=== PATIENT | female | born 1950 | race Caucasian/White ===

== ENCOUNTER 2023-04-17 12:11 | Inpatient (IN) | payer BC, OTHER ==
[2023-04-17 14:39] LABS: BASO % 0.7 % (0-2.0); EOS % 2.3 % (0-4.5); HEMATOCRIT 33.9 % (32.4-45.2); HEMOGLOBIN 11.1 GM/dL (10.7-15.3); LYMPH % 12.5 % (8-40); MCH 24.8 pg (25.7-33.7); MCHC 32.9 g/dl (32.0-36.0); MEAN CELL VOLUME 75.6 fl (80-96); MEAN PLT VOLUME 7.9 fl (7.5-11.1); MONO % 7.9 % (3.8-10.2); NEUT % 76.6 % (42.8-82.8); PLATELET COUNT 303 10^3/uL (134-434); RBC 4.48 M/mm3 (3.60-5.2); RDW 14.8 % (11.6-15.6); WHITE BLOOD COUNT 5.4 K/mm3 (4.0-10.0)
[2023-04-17 15:06] LABS: ALBUMIN 2.8 g/dl (3.4-5.0); BLOOD UREA NITROGEN 21.9 mg/dL (7-18); CALCIUM 9.6 mg/dL (8.5-10.1)
[2023-04-17 15:10] LABS: BILIRUBIN,TOTAL 0.6 mg/dL (0.2-1); TOT PROT 7.2 g/dl (6.4-8.2)
[2023-04-17 15:11] LABS: CREATININE 0.9 mg/dL (0.55-1.3)
[2023-04-17] MEDS ORDERED: SODIUM CHLORIDE 500 ML IV STA (16:03)
[2023-04-17] MEDS ORDERED: BISACODYL 5 MG TABLET.DR (FP) PO ONE (19:26)
[2023-04-17] MEDS ORDERED: POLYETHYLENE GLYCOL (HEALTHYLAX) 3350 17 GM PACKET ONE (19:58)
[2023-04-17] MEDS: POLYETHYLENE GLYCOL (HEALTHYLAX) 3350 17 GM PACKET PO SCH (20:02)
[2023-04-17 21:09] LABS: EPI CELLS 11 /uL (0-25.1); HYALINE CASTS 0 /uL (0-3.1); PH,URINE 5.5 (5.0-8.0); URINE APPEARANCE CLOUDY; URINE BACTERIA 8251 /uL (0-1359); URINE BILIRUBIN NEGATIVE (NEGATIVE); URINE COLOR YELLOW; URINE GLUCOSE (UA) NEGATIVE (NEGATIVE); URINE KETONE 1+ (NEGATIVE); URINE LEUK ESTERASE 2+ (NEGATIVE); URINE NITRITE POSITIVE (NEGATIVE); URINE PROTEIN NEGATIVE (NEGATIVE); URINE UROBILINOGEN 0.2 mg/dL (0.2-1.0); URINE WBC 995 /uL (0-25.8)
[2023-04-17] MEDS ORDERED: APIXABAN 5 MG TABLET ONE (21:32)
[2023-04-17] MEDS ORDERED: CARVEDILOL 6.25 MG TABLET (FP) ONE (21:32)
[2023-04-17 21:34] LABS: URINE RBC 44.8 /uL (0-23.9)
[2023-04-17] MEDS: APIXABAN 5 MG TABLET PO SCH (22:06)
[2023-04-17] MEDS: SACUBITRIL/VALSARTAN 97 MG-103 MG TABLET PO SCH (22:06)
[2023-04-17] MEDS: CARVEDILOL 6.25 MG TABLET (FP) PO SCH (22:06)
[2023-04-18 05:09] VITALS: BMI 22.4
[2023-04-18 08:13] LABS: HEMATOCRIT 31.7 % (32.4-45.2); HEMOGLOBIN 10.2 GM/dL (10.7-15.3); MCH 24.5 pg (25.7-33.7); MCHC 32.2 g/dl (32.0-36.0); PLATELET COUNT 286 10^3/uL (134-434); RBC 4.17 M/mm3 (3.60-5.2); RDW 14.4 % (11.6-15.6); WHITE BLOOD COUNT 4.3 K/mm3 (4.0-10.0)
[2023-04-18 08:26] LABS: BLOOD UREA NITROGEN 22.4 mg/dL (7-18); CALCIUM 8.9 mg/dL (8.5-10.1); MAGNESIUM 1.8 mg/dL (1.8-2.4)
[2023-04-18 08:30] LABS: CREATININE 0.8 mg/dL (0.55-1.3); PHOSPHOROUS 3.2 mg/dL (2.5-4.9)
[2023-04-18] MEDS: PANTOPRAZOLE 40 MG TABLET PO SCH (09:46)
[2023-04-18] MEDS: POLYETHYLENE GLYCOL (HEALTHYLAX) 3350 17 GM PACKET PO SCH (09:46)
[2023-04-18] MEDS: CARVEDILOL 6.25 MG TABLET (FP) PO SCH ×2 (09:46→23:00)
[2023-04-18] MEDS: FAMOTIDINE 20 MG TABLET PO SCH (09:46)
[2023-04-18] MEDS: SACUBITRIL/VALSARTAN 97 MG-103 MG TABLET PO SCH ×2 (09:46→23:27)
[2023-04-18] MEDS: APIXABAN 5 MG TABLET PO SCH ×2 (09:46→23:00)
[2023-04-18] MEDS: CEFTRIAXONE 1 GM in DEXTROSE 5%-WATER - 50 ML IVPB SCH (09:57)
[2023-04-18] MEDS: MAG HYDROX/AL HYDROX/SIMETH 30 ML UNIT-DOSE CUP PO SCH (17:42)
[2023-04-19] MEDS: MAG HYDROX/AL HYDROX/SIMETH 30 ML UNIT-DOSE CUP PO SCH ×4 (00:14→17:36)
[2023-04-19] MEDS: PANTOPRAZOLE 40 MG TABLET PO SCH (10:12)
[2023-04-19] MEDS: POLYETHYLENE GLYCOL (HEALTHYLAX) 3350 17 GM PACKET PO SCH (10:12)
[2023-04-19] MEDS: SACUBITRIL/VALSARTAN 97 MG-103 MG TABLET PO SCH ×2 (10:12→22:35)
[2023-04-19] MEDS: CEFTRIAXONE 1 GM in DEXTROSE 5%-WATER - 50 ML IVPB SCH (10:12)
[2023-04-19] MEDS: CARVEDILOL 6.25 MG TABLET (FP) PO SCH ×2 (10:12→22:36)
[2023-04-19] MEDS: FAMOTIDINE 20 MG TABLET PO SCH (10:12)
[2023-04-19] MEDS: APIXABAN 5 MG TABLET PO SCH ×2 (10:13→22:36)
[2023-04-19] MEDS: SODIUM CHLORIDE 1,000 ML IV SCH (15:00)
[2023-04-20] MEDS: MAG HYDROX/AL HYDROX/SIMETH 30 ML UNIT-DOSE CUP PO SCH ×4 (00:57→17:06)
[2023-04-20 09:04] LABS: BASO % 0.7 % (0-2.0); EOS % 5.5 % (0-4.5); HEMATOCRIT 31.1 % (32.4-45.2); LYMPH % 17.8 % (8-40); MCH 24.5 pg (25.7-33.7); MCHC 32.2 g/dl (32.0-36.0); MEAN CELL VOLUME 76.2 fl (80-96); MEAN PLT VOLUME 7.9 fl (7.5-11.1); PLATELET COUNT 277 10^3/uL (134-434); RBC 4.08 M/mm3 (3.60-5.2); RDW 14.2 % (11.6-15.6)
[2023-04-20 09:12] LABS: POTASSIUM 3.8 mmol/L (3.5-5.1)
[2023-04-20 09:14] LABS: CALCIUM 8.8 mg/dL (8.5-10.1)
[2023-04-20 09:15] LABS: ALBUMIN 2.3 g/dl (3.4-5.0); BLOOD UREA NITROGEN 17.6 mg/dL (7-18); MAGNESIUM 1.9 mg/dL (1.8-2.4)
[2023-04-20 09:18] LABS: CREATININE 0.8 mg/dL (0.55-1.3)
[2023-04-20 09:19] LABS: BILIRUBIN,TOTAL 0.3 mg/dL (0.2-1)
[2023-04-20] MEDS: CEFTRIAXONE 1 GM in DEXTROSE 5%-WATER - 50 ML IVPB SCH (10:27)
[2023-04-20] MEDS: POLYETHYLENE GLYCOL (HEALTHYLAX) 3350 17 GM PACKET PO SCH (10:28)
[2023-04-20] MEDS: FAMOTIDINE 20 MG TABLET PO SCH (10:28)
[2023-04-20] MEDS: APIXABAN 5 MG TABLET PO SCH ×2 (10:28→22:53)
[2023-04-20] MEDS: PANTOPRAZOLE 40 MG TABLET PO SCH (10:28)
[2023-04-20] MEDS: CARVEDILOL 6.25 MG TABLET (FP) PO SCH ×2 (10:28→22:53)
[2023-04-20] MEDS: SACUBITRIL/VALSARTAN 97 MG-103 MG TABLET PO SCH ×2 (10:28→22:53)
[2023-04-20] MEDS: SODIUM CHLORIDE 1,000 ML IV SCH ×2 (16:25→17:06)
[2023-04-20] MEDS: MEROPENEM 1 GM in DEXTROSE 5%-WATER 100 ML IVPB SCH (17:05)
[2023-04-21] MEDS: MAG HYDROX/AL HYDROX/SIMETH 30 ML UNIT-DOSE CUP PO SCH ×4 (00:58→17:30)
[2023-04-21] MEDS: MEROPENEM 1 GM in DEXTROSE 5%-WATER 100 ML IVPB SCH ×3 (03:20→17:28)
[2023-04-21 08:36] LABS: EOS % 4.4 % (0-4.5); HEMATOCRIT 31.5 % (32.4-45.2); LYMPH % 14.7 % (8-40); MCH 24.3 pg (25.7-33.7); MCHC 31.9 g/dl (32.0-36.0); MEAN CELL VOLUME 76.3 fl (80-96); MEAN PLT VOLUME 7.7 fl (7.5-11.1); MONO % 10.4 % (3.8-10.2); NEUT % 69.5 % (42.8-82.8); PLATELET COUNT 286 10^3/uL (134-434); RBC 4.13 M/mm3 (3.60-5.2); RDW 14.6 % (11.6-15.6); WHITE BLOOD COUNT 3.5 K/mm3 (4.0-10.0)
[2023-04-21 08:56] LABS: POTASSIUM 3.9 mmol/L (3.5-5.1)
[2023-04-21 08:58] LABS: ALBUMIN 2.3 g/dl (3.4-5.0); BLOOD UREA NITROGEN 15.9 mg/dL (7-18); CALCIUM 8.9 mg/dL (8.5-10.1)
[2023-04-21 08:59] LABS: MAGNESIUM 2.1 mg/dL (1.8-2.4)
[2023-04-21 09:02] LABS: CREATININE 0.8 mg/dL (0.55-1.3)
[2023-04-21 09:03] LABS: BILIRUBIN,TOTAL 0.2 mg/dL (0.2-1); TOT PROT 6.3 g/dl (6.4-8.2)
[2023-04-21] MEDS: CARVEDILOL 6.25 MG TABLET (FP) PO SCH ×2 (09:38→22:14)
[2023-04-21] MEDS: APIXABAN 5 MG TABLET PO SCH ×2 (09:38→22:14)
[2023-04-21] MEDS: FAMOTIDINE 20 MG TABLET PO SCH (09:39)
[2023-04-21] MEDS: PANTOPRAZOLE 40 MG TABLET PO SCH (09:39)
[2023-04-21] MEDS: POLYETHYLENE GLYCOL (HEALTHYLAX) 3350 17 GM PACKET PO SCH (09:39)
[2023-04-21] MEDS: SACUBITRIL/VALSARTAN 97 MG-103 MG TABLET PO SCH ×2 (09:39→22:14)
[2023-04-21] MEDS: SODIUM CHLORIDE 1,000 ML IV SCH ×2 (14:55→18:54)
[2023-04-22] MEDS: MAG HYDROX/AL HYDROX/SIMETH 30 ML UNIT-DOSE CUP PO SCH ×5 (01:14→23:46)
[2023-04-22] MEDS: MEROPENEM 1 GM in DEXTROSE 5%-WATER 100 ML IVPB SCH ×3 (01:14→17:11)
[2023-04-22 08:33] LABS: EOS % 6.1 % (0-4.5); HEMATOCRIT 34.4 % (32.4-45.2); HEMOGLOBIN 11.1 GM/dL (10.7-15.3); LYMPH % 21.6 % (8-40); MCH 24.9 pg (25.7-33.7); MCHC 32.3 g/dl (32.0-36.0); MEAN CELL VOLUME 77.1 fl (80-96); MEAN PLT VOLUME 8.1 fl (7.5-11.1); MONO % 10.8 % (3.8-10.2); NEUT % 60.5 % (42.8-82.8); PLATELET COUNT 296 10^3/uL (134-434); RBC 4.47 M/mm3 (3.60-5.2); RDW 14.8 % (11.6-15.6); WHITE BLOOD COUNT 2.7 K/mm3 (4.0-10.0)
[2023-04-22 08:55] LABS: ALBUMIN 2.5 g/dl (3.4-5.0); BLOOD UREA NITROGEN 11.1 mg/dL (7-18); CALCIUM 9.3 mg/dL (8.5-10.1)
[2023-04-22 08:58] LABS: CREATININE 0.8 mg/dL (0.55-1.3)
[2023-04-22 09:00] LABS: BILIRUBIN,TOTAL 0.4 mg/dL (0.2-1); TOT PROT 6.9 g/dl (6.4-8.2)
[2023-04-22] MEDS: SACUBITRIL/VALSARTAN 97 MG-103 MG TABLET PO SCH ×2 (09:55→21:43)
[2023-04-22] MEDS: POLYETHYLENE GLYCOL (HEALTHYLAX) 3350 17 GM PACKET PO SCH (09:55)
[2023-04-22] MEDS: FAMOTIDINE 20 MG TABLET PO SCH (09:56)
[2023-04-22] MEDS: CARVEDILOL 6.25 MG TABLET (FP) PO SCH ×2 (09:56→21:43)
[2023-04-22] MEDS: PANTOPRAZOLE 40 MG TABLET PO SCH (09:56)
[2023-04-22] MEDS: APIXABAN 5 MG TABLET PO SCH ×2 (09:56→21:43)
[2023-04-22] MEDS: SODIUM CHLORIDE 1,000 ML IV SCH (15:57)
[2023-04-22] MEDS: AMINO ACIDS/PROTEIN HYDROLYS 30 ML LIQUID.PKT PO SCH (17:11)
[2023-04-23] MEDS: MEROPENEM 1 GM in DEXTROSE 5%-WATER 100 ML IVPB SCH ×3 (02:38→18:20)
[2023-04-23] MEDS: MAG HYDROX/AL HYDROX/SIMETH 30 ML UNIT-DOSE CUP PO SCH ×4 (05:46→18:20)
[2023-04-23 08:51] LABS: BASO % 0.9 % (0-2.0); EOS % 4.4 % (0-4.5); HEMATOCRIT 35.2 % (32.4-45.2); HEMOGLOBIN 11.3 GM/dL (10.7-15.3); LYMPH % 19.9 % (8-40); MCH 24.7 pg (25.7-33.7); MCHC 32.2 g/dl (32.0-36.0); MEAN CELL VOLUME 76.9 fl (80-96); MEAN PLT VOLUME 7.8 fl (7.5-11.1); NEUT % 62.8 % (42.8-82.8); PLATELET COUNT 288 10^3/uL (134-434); RBC 4.58 M/mm3 (3.60-5.2); RDW 14.4 % (11.6-15.6); WHITE BLOOD COUNT 3.1 K/mm3 (4.0-10.0)
[2023-04-23 09:06] LABS: POTASSIUM 3.9 mmol/L (3.5-5.1)
[2023-04-23 09:09] LABS: ALBUMIN 2.5 g/dl (3.4-5.0); CALCIUM 9.3 mg/dL (8.5-10.1)
[2023-04-23 09:12] LABS: CREATININE 0.7 mg/dL (0.55-1.3)
[2023-04-23 09:14] LABS: BILIRUBIN,TOTAL 0.3 mg/dL (0.2-1); TOT PROT 6.8 g/dl (6.4-8.2)
[2023-04-23] MEDS: POLYETHYLENE GLYCOL (HEALTHYLAX) 3350 17 GM PACKET PO SCH (10:09)
[2023-04-23] MEDS: AMINO ACIDS/PROTEIN HYDROLYS 30 ML LIQUID.PKT PO SCH ×2 (10:09→18:20)
[2023-04-23] MEDS: APIXABAN 5 MG TABLET PO SCH ×2 (10:10→21:48)
[2023-04-23] MEDS: CARVEDILOL 6.25 MG TABLET (FP) PO SCH ×2 (10:10→21:48)
[2023-04-23] MEDS: MULTIVITAMINS (DAILY MVI) TABLET (FP) PO SCH (10:10)
[2023-04-23] MEDS: PANTOPRAZOLE 40 MG TABLET PO SCH (10:10)
[2023-04-23] MEDS: FAMOTIDINE 20 MG TABLET PO SCH (10:10)
[2023-04-23] MEDS: SACUBITRIL/VALSARTAN 97 MG-103 MG TABLET PO SCH ×2 (10:51→21:49)
[2023-04-23] MEDS: MIRTAZAPINE 15 MG TABLET (FP) PO SCH (21:48)
[2023-04-24] MEDS: MAG HYDROX/AL HYDROX/SIMETH 30 ML UNIT-DOSE CUP PO SCH ×4 (00:25→17:15)
[2023-04-24] MEDS: MEROPENEM 1 GM in DEXTROSE 5%-WATER 100 ML IVPB SCH ×3 (01:06→17:16)
[2023-04-24] MEDS: AMINO ACIDS/PROTEIN HYDROLYS 30 ML LIQUID.PKT PO SCH ×2 (08:39→17:16)
[2023-04-24 09:09] LABS: BASO % 0.9 % (0-2.0); EOS % 4.2 % (0-4.5); HEMATOCRIT 33.6 % (32.4-45.2); HEMOGLOBIN 11.2 GM/dL (10.7-15.3); LYMPH % 27.9 % (8-40); MCHC 33.3 g/dl (32.0-36.0); MEAN PLT VOLUME 7.8 fl (7.5-11.1); MONO % 13.2 % (3.8-10.2); NEUT % 53.8 % (42.8-82.8); PLATELET COUNT 274 10^3/uL (134-434); RBC 4.47 M/mm3 (3.60-5.2); RDW 15.1 % (11.6-15.6); WHITE BLOOD COUNT 3.2 K/mm3 (4.0-10.0)
[2023-04-24 09:25] LABS: POTASSIUM 4.2 mmol/L (3.5-5.1)
[2023-04-24 09:26] LABS: CALCIUM 9.2 mg/dL (8.5-10.1)
[2023-04-24 09:27] LABS: ALBUMIN 2.4 g/dl (3.4-5.0)
[2023-04-24 09:28] LABS: BLOOD UREA NITROGEN 15.1 mg/dL (7-18); MAGNESIUM 2.1 mg/dL (1.8-2.4)
[2023-04-24 09:30] LABS: CREATININE 0.9 mg/dL (0.55-1.3)
[2023-04-24 09:32] LABS: BILIRUBIN,TOTAL 0.3 mg/dL (0.2-1); TOT PROT 6.4 g/dl (6.4-8.2)
[2023-04-24] MEDS: MULTIVITAMINS (DAILY MVI) TABLET (FP) PO SCH (10:53)
[2023-04-24] MEDS: PANTOPRAZOLE 40 MG TABLET PO SCH (10:53)
[2023-04-24] MEDS: CARVEDILOL 6.25 MG TABLET (FP) PO SCH ×2 (10:53→21:52)
[2023-04-24] MEDS: FAMOTIDINE 20 MG TABLET PO SCH (10:53)
[2023-04-24] MEDS: POLYETHYLENE GLYCOL (HEALTHYLAX) 3350 17 GM PACKET PO SCH (10:53)
[2023-04-24] MEDS: APIXABAN 5 MG TABLET PO SCH ×2 (10:53→21:52)
[2023-04-24] MEDS: SACUBITRIL/VALSARTAN 97 MG-103 MG TABLET PO SCH ×2 (10:53→21:52)
[2023-04-24] MEDS: MIRTAZAPINE 15 MG TABLET (FP) PO SCH (21:52)
[2023-04-25] MEDS: MAG HYDROX/AL HYDROX/SIMETH 30 ML UNIT-DOSE CUP PO SCH ×5 (02:48→17:02)
[2023-04-25] MEDS: MEROPENEM 1 GM in DEXTROSE 5%-WATER 100 ML IVPB SCH ×3 (02:58→17:02)
[2023-04-25 08:34] LABS: BASO % 0.8 % (0-2.0); EOS % 5.4 % (0-4.5); HEMATOCRIT 31.5 % (32.4-45.2); HEMOGLOBIN 10.1 GM/dL (10.7-15.3); LYMPH % 33.6 % (8-40); MCH 24.6 pg (25.7-33.7); MCHC 32.1 g/dl (32.0-36.0); MEAN CELL VOLUME 76.5 fl (80-96); MEAN PLT VOLUME 7.6 fl (7.5-11.1); MONO % 13.1 % (3.8-10.2); NEUT % 47.1 % (42.8-82.8); PLATELET COUNT 262 10^3/uL (134-434); RBC 4.12 M/mm3 (3.60-5.2); RDW 14.5 % (11.6-15.6); WHITE BLOOD COUNT 2.8 K/mm3 (4.0-10.0)
[2023-04-25 08:47] LABS: POTASSIUM 3.8 mmol/L (3.5-5.1)
[2023-04-25 08:52] LABS: CALCIUM 9.2 mg/dL (8.5-10.1)
[2023-04-25 08:53] LABS: ALBUMIN 2.4 g/dl (3.4-5.0); BLOOD UREA NITROGEN 14.7 mg/dL (7-18); MAGNESIUM 2.2 mg/dL (1.8-2.4)
[2023-04-25 08:56] LABS: CREATININE 0.9 mg/dL (0.55-1.3)
[2023-04-25 08:57] LABS: BILIRUBIN,TOTAL 0.9 mg/dL (0.2-1)
[2023-04-25 08:58] LABS: TOT PROT 6.2 g/dl (6.4-8.2)
[2023-04-25] MEDS: POLYETHYLENE GLYCOL (HEALTHYLAX) 3350 17 GM PACKET PO SCH (10:04)
[2023-04-25] MEDS: CARVEDILOL 6.25 MG TABLET (FP) PO SCH ×3 (10:04→22:07)
[2023-04-25] MEDS: APIXABAN 5 MG TABLET PO SCH ×3 (10:04→22:07)
[2023-04-25] MEDS: FAMOTIDINE 20 MG TABLET PO SCH ×2 (10:04→12:34)
[2023-04-25] MEDS: PANTOPRAZOLE 40 MG TABLET PO SCH ×2 (10:04→12:34)
[2023-04-25] MEDS: AMINO ACIDS/PROTEIN HYDROLYS 30 ML LIQUID.PKT PO SCH ×3 (10:04→16:53)
[2023-04-25] MEDS: MULTIVITAMINS (DAILY MVI) TABLET (FP) PO SCH ×2 (10:04→12:34)
[2023-04-25] MEDS: SACUBITRIL/VALSARTAN 97 MG-103 MG TABLET PO SCH ×3 (10:04→22:07)
[2023-04-25] MEDS: MIRTAZAPINE 15 MG TABLET (FP) PO SCH (22:08)
[2023-04-26] MEDS: MAG HYDROX/AL HYDROX/SIMETH 30 ML UNIT-DOSE CUP PO SCH ×5 (00:33→23:24)
[2023-04-26] MEDS: MEROPENEM 1 GM in DEXTROSE 5%-WATER 100 ML IVPB SCH ×3 (02:41→17:02)
[2023-04-26] MEDS: PANTOPRAZOLE 40 MG TABLET PO SCH (09:30)
[2023-04-26] MEDS: AMINO ACIDS/PROTEIN HYDROLYS 30 ML LIQUID.PKT PO SCH ×2 (09:30→17:02)
[2023-04-26] MEDS: SACUBITRIL/VALSARTAN 97 MG-103 MG TABLET PO SCH ×2 (09:30→22:04)
[2023-04-26] MEDS: CARVEDILOL 6.25 MG TABLET (FP) PO SCH ×2 (09:30→22:04)
[2023-04-26] MEDS: POLYETHYLENE GLYCOL (HEALTHYLAX) 3350 17 GM PACKET PO SCH (09:30)
[2023-04-26] MEDS: APIXABAN 5 MG TABLET PO SCH ×2 (09:30→22:04)
[2023-04-26] MEDS: MULTIVITAMINS (DAILY MVI) TABLET (FP) PO SCH (09:30)
[2023-04-26] MEDS: FAMOTIDINE 20 MG TABLET PO SCH (09:30)
[2023-04-26] MEDS ORDERED: ACETAMINOPHEN 1000 MG/100 ML BAG IVPB PRN (10:08)
[2023-04-26] MEDS ORDERED: LIDOCAINE 4% PATCH TP SCH (10:15)
[2023-04-26] MEDS: LIDOCAINE 4% PATCH TP SCH (11:04)
[2023-04-26] MEDS: MIRTAZAPINE 15 MG TABLET (FP) PO SCH (22:04)
[2023-04-26] MEDS: LIDOCAINE PATCH REMOVAL MC SCH ×2 (22:06)
[2023-04-27] MEDS: MEROPENEM 1 GM in DEXTROSE 5%-WATER 100 ML IVPB SCH ×2 (01:17→09:36)
[2023-04-27] MEDS: MAG HYDROX/AL HYDROX/SIMETH 30 ML UNIT-DOSE CUP PO SCH ×3 (06:06→18:08)
[2023-04-27] MEDS: AMINO ACIDS/PROTEIN HYDROLYS 30 ML LIQUID.PKT PO SCH ×2 (09:05→18:07)
[2023-04-27] MEDS: MULTIVITAMINS (DAILY MVI) TABLET (FP) PO SCH (09:07)
[2023-04-27] MEDS: POLYETHYLENE GLYCOL (HEALTHYLAX) 3350 17 GM PACKET PO SCH (09:07)
[2023-04-27] MEDS: LIDOCAINE 4% PATCH TP SCH ×2 (09:07→09:09)
[2023-04-27] MEDS: SACUBITRIL/VALSARTAN 97 MG-103 MG TABLET PO SCH ×2 (09:08→22:05)
[2023-04-27] MEDS: PANTOPRAZOLE 40 MG TABLET PO SCH (09:08)
[2023-04-27] MEDS: APIXABAN 5 MG TABLET PO SCH ×2 (09:08→22:04)
[2023-04-27] MEDS: CARVEDILOL 6.25 MG TABLET (FP) PO SCH ×2 (09:08→22:04)
[2023-04-27] MEDS: FAMOTIDINE 20 MG TABLET PO SCH (09:36)
[2023-04-27] MEDS: MIRTAZAPINE 15 MG TABLET (FP) PO SCH (22:04)
[2023-04-27] MEDS: LIDOCAINE PATCH REMOVAL MC SCH ×2 (22:40→22:45)
[2023-04-28] MEDS: MAG HYDROX/AL HYDROX/SIMETH 30 ML UNIT-DOSE CUP PO SCH ×6 (00:36→23:36)
[2023-04-28] MEDS: AMINO ACIDS/PROTEIN HYDROLYS 30 ML LIQUID.PKT PO SCH ×2 (08:26→17:32)
[2023-04-28] MEDS: MULTIVITAMINS (DAILY MVI) TABLET (FP) PO SCH (10:23)
[2023-04-28] MEDS: SACUBITRIL/VALSARTAN 97 MG-103 MG TABLET PO SCH ×2 (10:26→21:25)
[2023-04-28] MEDS: CARVEDILOL 6.25 MG TABLET (FP) PO SCH ×2 (10:26→21:25)
[2023-04-28] MEDS: LIDOCAINE 4% PATCH TP SCH ×2 (10:26)
[2023-04-28] MEDS: POLYETHYLENE GLYCOL (HEALTHYLAX) 3350 17 GM PACKET PO SCH (10:26)
[2023-04-28] MEDS: FAMOTIDINE 20 MG TABLET PO SCH (10:26)
[2023-04-28] MEDS: PANTOPRAZOLE 40 MG TABLET PO SCH (10:26)
[2023-04-28] MEDS: APIXABAN 5 MG TABLET PO SCH ×2 (10:26→21:25)
[2023-04-28] MEDS: ACETAMINOPHEN 325 MG TABLET (FP) PO SCH ×4 (11:57→23:36)
[2023-04-28] MEDS: MIRTAZAPINE 15 MG TABLET (FP) PO SCH (21:24)
[2023-04-28] MEDS: LIDOCAINE PATCH REMOVAL MC SCH ×2 (22:06)
[2023-04-29] MEDS: ACETAMINOPHEN 325 MG TABLET (FP) PO SCH ×2 (05:23→12:37)
[2023-04-29] MEDS: MAG HYDROX/AL HYDROX/SIMETH 30 ML UNIT-DOSE CUP PO SCH ×2 (05:23→12:36)
[2023-04-29] MEDS: AMINO ACIDS/PROTEIN HYDROLYS 30 ML LIQUID.PKT PO SCH (08:20)
[2023-04-29] MEDS: MULTIVITAMINS (DAILY MVI) TABLET (FP) PO SCH (09:58)
[2023-04-29] MEDS: LIDOCAINE 4% PATCH TP SCH ×2 (09:58→09:59)
[2023-04-29] MEDS: CARVEDILOL 6.25 MG TABLET (FP) PO SCH (09:58)
[2023-04-29] MEDS: POLYETHYLENE GLYCOL (HEALTHYLAX) 3350 17 GM PACKET PO SCH (09:58)
[2023-04-29] MEDS: SACUBITRIL/VALSARTAN 97 MG-103 MG TABLET PO SCH (09:58)
[2023-04-29] MEDS: PANTOPRAZOLE 40 MG TABLET PO SCH (09:58)
[2023-04-29] MEDS: FAMOTIDINE 20 MG TABLET PO SCH (09:58)
[2023-04-29] MEDS: APIXABAN 5 MG TABLET PO SCH (09:58)
[2023-04-29 13:35] VITALS: BP 130/75; PULSE 62; RESP 20; TEMP 97.8
== END 2023-04-29 14:11 | disposition home or self-care (01) | DRG 690 ==
LOC: JER 12:11 → JERBED 17:07 → OBSVTOIN 19:29 → J7W 23:13
PROVIDERS: ADMIT Internal Medicine
DX: N39.0 Urinary tract infection, site not specified (principal); I50.22 Chronic systolic (congestive) heart failure; E44.0 Moderate protein-calorie malnutrition; Z16.12 Extended spectrum beta lactamase (ESBL) resistance; R62.7 Adult failure to thrive; I11.0 Hypertensive heart disease with heart failure; I48.91 Unspecified atrial fibrillation; R53.1 Weakness; I69.998 Other sequelae following unspecified cerebrovascular disease; Z85.3 Personal history of malignant neoplasm of breast; R26.2 Difficulty in walking, not elsewhere classified; Z68.22 Body mass index [BMI] 22.0-22.9, adult; B96.1 Klebsiella pneumoniae [K. pneumoniae] as the cause of diseases classified elsewhere; F01.50 Vascular dementia, unspecified severity, without behavioral disturbance, psychotic disturbance, mood disturbance, and anxiety
CPT/HCPCS: 0241U-QW; 36415; 70450-TC; 72128-TC; 72131-TC; 80048; 80053; 81003; 82550; 82607; 82746; 83735; 84100; 84443; 85025; 85027; 87086; 87186; 93005; 93010; 97116-GP; 99285-25; G0378

== ENCOUNTER 2023-05-12 17:38 | Inpatient (IN) | payer OTHER ==
[2023-05-12 18:58] LABS: EPI CELLS 32 /uL (0-25.1); HYALINE CASTS 3 /uL (0-3.1); PH,URINE 5.5 (5.0-8.0); URINE APPEARANCE CLOUDY; URINE BACTERIA 26 /uL (0-1359); URINE BILIRUBIN NEGATIVE (NEGATIVE); URINE COLOR YELLOW; URINE GLUCOSE (UA) NEGATIVE (NEGATIVE); URINE KETONE TRACE (NEGATIVE); URINE LEUK ESTERASE TRACE (NEGATIVE); URINE NITRITE NEGATIVE (NEGATIVE); URINE PROTEIN TRACE (NEGATIVE); URINE RBC 934 /uL (0-23.9); URINE WBC 30 /uL (0-25.8)
[2023-05-12 21:18] LABS: BASO % 0.5 % (0-2.0); EOS % 0.3 % (0-4.5); HEMATOCRIT 38.4 % (32.4-45.2); HEMOGLOBIN 12.4 GM/dL (10.7-15.3); LYMPH % 9.6 % (8-40); MCH 24.2 pg (25.7-33.7); MCHC 32.3 g/dl (32.0-36.0); MEAN CELL VOLUME 74.7 fl (80-96); MONO % 6.2 % (3.8-10.2); NEUT % 83.4 % (42.8-82.8); PLATELET COUNT 313 10^3/uL (134-434); RBC 5.13 M/mm3 (3.60-5.2); RDW 14.4 % (11.6-15.6); WHITE BLOOD COUNT 5.9 K/mm3 (4.0-10.0)
[2023-05-12 21:24] LABS: INR 1.6 (0.83-1.09); PROTHROMBIN TIME (PATIENT) 18.5 SEC (9.7-13.0)
[2023-05-12 21:27] LABS: ACTIVATED PTT 39.2 SECONDS (25.2-36.5)
[2023-05-12 21:48] LABS: POTASSIUM 4.2 mmol/L (3.5-5.1)
[2023-05-12 21:50] LABS: CALCIUM 10.1 mg/dL (8.5-10.1)
[2023-05-12 21:51] LABS: ALBUMIN 3.1 g/dl (3.4-5.0); BLOOD UREA NITROGEN 23.5 mg/dL (7-18)
[2023-05-12 21:54] LABS: CREATININE 0.9 mg/dL (0.55-1.3)
[2023-05-12 21:55] LABS: BILIRUBIN,TOTAL 0.7 mg/dL (0.2-1); TOT PROT 8.3 g/dl (6.4-8.2)
[2023-05-12] MEDS ORDERED: ASPIRIN 325 MG TABLET PO ONE (23:02)
[2023-05-12] MEDS ORDERED: ASPIRIN 81 MG CHEWABLE TABLETS ONE (23:07)
[2023-05-13] MEDS ORDERED: MEROPENEM 1 GM VIAL (RESTRICTED TO ID) IVPB ONE ×2 (02:05→09:35)
[2023-05-13] MEDS ORDERED: DEXTROSE 5%-WATER 100 ML IVPB ONE (02:05)
[2023-05-13] MEDS: MEROPENEM 1 GM in DEXTROSE 5%-WATER 100 ML IVPB SCH ×2 (02:16→09:49)
[2023-05-13 07:43] LABS: HEMATOCRIT 32.9 % (32.4-45.2); HEMOGLOBIN 10.6 GM/dL (10.7-15.3); MCH 24.3 pg (25.7-33.7); MCHC 32.1 g/dl (32.0-36.0); MEAN CELL VOLUME 75.7 fl (80-96); MEAN PLT VOLUME 8.2 fl (7.5-11.1); PLATELET COUNT 294 10^3/uL (134-434); RBC 4.34 M/mm3 (3.60-5.2); RDW 14.2 % (11.6-15.6); WHITE BLOOD COUNT 5.2 K/mm3 (4.0-10.0)
[2023-05-13 07:59] LABS: POTASSIUM 3.7 mmol/L (3.5-5.1)
[2023-05-13 08:04] LABS: BLOOD UREA NITROGEN 24.3 mg/dL (7-18); CALCIUM 9.1 mg/dL (8.5-10.1)
[2023-05-13 08:05] LABS: ALBUMIN 2.5 g/dl (3.4-5.0); MAGNESIUM 1.9 mg/dL (1.8-2.4)
[2023-05-13 08:07] LABS: CREATININE 0.7 mg/dL (0.55-1.3); PHOSPHOROUS 2.8 mg/dL (2.5-4.9)
[2023-05-13 08:08] LABS: BILIRUBIN,TOTAL 0.7 mg/dL (0.2-1); TOT PROT 6.8 g/dl (6.4-8.2)
[2023-05-13] MEDS: INSULIN SLIDING SCALE (NOVOLOG) 1 VIAL SQ SCH ×4 (08:34→21:28)
[2023-05-13] MEDS: APIXABAN 5 MG TABLET PO SCH ×2 (09:49→21:28)
[2023-05-13] MEDS: ASPIRIN COATED 81 MG TABLET.EC PO SCH (09:49)
[2023-05-13] MEDS: CARVEDILOL 6.25 MG TABLET (FP) PO SCH ×2 (09:49→21:27)
[2023-05-13] MEDS ORDERED: ENOXAPARIN NA (PORCINE) 40 MG/0.4 ML DISP.SYRIN SQ SCH (10:00)
[2023-05-13] MEDS ORDERED: CEFTRIAXONE 1 GM in DEXTROSE 5%-WATER - 50 ML IVPB SCH (10:00)
[2023-05-13] MEDS ORDERED: CEFTRIAXONE 1 GM/50 ML BAG ONE (12:14)
[2023-05-13] MEDS: CEFTRIAXONE 1 GM in DEXTROSE 5%-WATER - 50 ML IVPB SCH (12:20)
[2023-05-13 19:39] VITALS: BMI 18.6
[2023-05-13] MEDS: ATORVASTATIN CA 80 MG TABLET (FP) PO SCH (21:28)
[2023-05-14] MEDS ORDERED: MEROPENEM 1 GM in DEXTROSE 5%-WATER 100 ML IVPB SCH (02:00)
[2023-05-14] MEDS: INSULIN SLIDING SCALE (NOVOLOG) 1 VIAL SQ SCH ×4 (06:32→21:12)
[2023-05-14 07:28] LABS: HEMATOCRIT 31.9 % (32.4-45.2); HEMOGLOBIN 10.1 GM/dL (10.7-15.3); MCH 24.3 pg (25.7-33.7); MCHC 31.7 g/dl (32.0-36.0); MEAN CELL VOLUME 76.6 fl (80-96); MEAN PLT VOLUME 8.1 fl (7.5-11.1); PLATELET COUNT 288 10^3/uL (134-434); RBC 4.17 M/mm3 (3.60-5.2); RDW 14.1 % (11.6-15.6); WHITE BLOOD COUNT 5.5 K/mm3 (4.0-10.0)
[2023-05-14 07:36] LABS: POTASSIUM 4.1 mmol/L (3.5-5.1)
[2023-05-14 07:40] LABS: BLOOD UREA NITROGEN 22.5 mg/dL (7-18); MAGNESIUM 1.8 mg/dL (1.8-2.4)
[2023-05-14 07:41] LABS: CALCIUM 9.1 mg/dL (8.5-10.1)
[2023-05-14 07:43] LABS: PHOSPHOROUS 3.2 mg/dL (2.5-4.9)
[2023-05-14 07:44] LABS: CREATININE 0.6 mg/dL (0.55-1.3)
[2023-05-14] MEDS ORDERED: SODIUM CHLORIDE 1,000 ML IV STA (09:57)
[2023-05-14] MEDS: CEFTRIAXONE 1 GM in DEXTROSE 5%-WATER - 50 ML IVPB SCH (10:20)
[2023-05-14] MEDS: SACUBITRIL/VALSARTAN 97 MG-103 MG TABLET PO SCH ×2 (10:33→21:12)
[2023-05-14] MEDS: PANTOPRAZOLE 40 MG TABLET PO SCH (10:33)
[2023-05-14] MEDS: CARVEDILOL 6.25 MG TABLET (FP) PO SCH ×2 (10:33→21:12)
[2023-05-14] MEDS: APIXABAN 5 MG TABLET PO SCH ×2 (10:33→21:12)
[2023-05-14] MEDS: ASPIRIN COATED 81 MG TABLET.EC PO SCH (10:33)
[2023-05-14] MEDS: ACETAMINOPHEN 325 MG TABLET (FP) PO SCH ×2 (15:21→21:11)
[2023-05-14 16:14] LABS: CHOLESTEROL 143 mg/dL (50-200)
[2023-05-14 16:16] LABS: LDL CHOLESTEROL (ONLY SJRH) 91 mg/dL (5-100)
[2023-05-14 16:17] LABS: HDL CHOLESTEROL 40 mg/dL (40-60)
[2023-05-14 16:18] LABS: N-TERMINAL BNP 608.6 pg/ml (5-450)
[2023-05-14] MEDS ORDERED: SODIUM CHLORIDE 1,000 ML IV SCH (18:15)
[2023-05-14] MEDS: ATORVASTATIN CA 80 MG TABLET (FP) PO SCH (21:12)
[2023-05-14] MEDS: MIRTAZAPINE 15 MG TABLET (FP) PO SCH (21:12)
[2023-05-15] MEDS: ACETAMINOPHEN 325 MG TABLET (FP) PO SCH ×5 (03:08→21:50)
[2023-05-15] MEDS: INSULIN SLIDING SCALE (NOVOLOG) 1 VIAL SQ SCH ×4 (06:00→21:51)
[2023-05-15] MEDS: APIXABAN 5 MG TABLET PO SCH ×2 (09:02→21:48)
[2023-05-15] MEDS: ASPIRIN COATED 81 MG TABLET.EC PO SCH (09:02)
[2023-05-15] MEDS: CARVEDILOL 6.25 MG TABLET (FP) PO SCH ×2 (09:02→21:48)
[2023-05-15] MEDS: PANTOPRAZOLE 40 MG TABLET PO SCH (09:03)
[2023-05-15] MEDS: SACUBITRIL/VALSARTAN 97 MG-103 MG TABLET PO SCH ×2 (09:03→21:48)
[2023-05-15 09:42] LABS: HEMATOCRIT 31.4 % (32.4-45.2); MCH 24.3 pg (25.7-33.7); MCHC 31.8 g/dl (32.0-36.0); MEAN CELL VOLUME 76.5 fl (80-96); MEAN PLT VOLUME 8.1 fl (7.5-11.1); PLATELET COUNT 309 10^3/uL (134-434); WHITE BLOOD COUNT 4.1 K/mm3 (4.0-10.0)
[2023-05-15 09:51] LABS: POTASSIUM 3.9 mmol/L (3.5-5.1)
[2023-05-15 09:56] LABS: CALCIUM 8.7 mg/dL (8.5-10.1)
[2023-05-15 09:57] LABS: BLOOD UREA NITROGEN 17.9 mg/dL (7-18); MAGNESIUM 1.8 mg/dL (1.8-2.4)
[2023-05-15 09:59] LABS: PHOSPHOROUS 2.9 mg/dL (2.5-4.9)
[2023-05-15 10:00] LABS: CREATININE 0.6 mg/dL (0.55-1.3)
[2023-05-15] MEDS ORDERED: FLUCONAZOLE 150 MG TABLET PO ONE (15:45)
[2023-05-15] MEDS: ATORVASTATIN CA 80 MG TABLET (FP) PO SCH (21:48)
[2023-05-15] MEDS: MIRTAZAPINE 15 MG TABLET (FP) PO SCH (21:48)
[2023-05-15] MEDS ORDERED: TRIMETHOBENZAMIDE HCL 200MG/2ML INJ IM ONE (23:45)
[2023-05-15] MEDS ORDERED: BISACODYL 5 MG TABLET.DR (FP) PO ONE (23:45)
[2023-05-16] MEDS: ACETAMINOPHEN 325 MG TABLET (FP) PO SCH ×4 (02:00→20:26)
[2023-05-16] MEDS: INSULIN SLIDING SCALE (NOVOLOG) 1 VIAL SQ SCH ×4 (06:03→22:30)
[2023-05-16] MEDS ORDERED: BISACODYL 10 MG SUPP.RECT PR ONE (09:00)
[2023-05-16] MEDS: CARVEDILOL 6.25 MG TABLET (FP) PO SCH ×2 (09:48→22:30)
[2023-05-16] MEDS: APIXABAN 5 MG TABLET PO SCH ×2 (09:48→22:30)
[2023-05-16] MEDS: PANTOPRAZOLE 40 MG TABLET PO SCH (09:48)
[2023-05-16] MEDS: ASPIRIN COATED 81 MG TABLET.EC PO SCH (09:48)
[2023-05-16] MEDS: SACUBITRIL/VALSARTAN 97 MG-103 MG TABLET PO SCH ×2 (09:48→22:30)
[2023-05-16] MEDS: MIRTAZAPINE 15 MG TABLET (FP) PO SCH (22:30)
[2023-05-16] MEDS: ATORVASTATIN CA 80 MG TABLET (FP) PO SCH (22:30)
[2023-05-17] MEDS: ACETAMINOPHEN 325 MG TABLET (FP) PO SCH ×2 (02:10→07:50)
[2023-05-17 06:04] VITALS: RESP 18
[2023-05-17] MEDS: INSULIN SLIDING SCALE (NOVOLOG) 1 VIAL SQ SCH (06:06)
[2023-05-17 09:51] VITALS: BP 152/90; PULSE 90; TEMP 98
[2023-05-17] MEDS: CARVEDILOL 6.25 MG TABLET (FP) PO SCH (10:06)
[2023-05-17] MEDS: PANTOPRAZOLE 40 MG TABLET PO SCH (10:06)
[2023-05-17] MEDS: ASPIRIN COATED 81 MG TABLET.EC PO SCH (10:06)
[2023-05-17] MEDS: APIXABAN 5 MG TABLET PO SCH (10:07)
[2023-05-17] MEDS: SACUBITRIL/VALSARTAN 97 MG-103 MG TABLET PO SCH (10:07)
== END 2023-05-17 11:47 | disposition home or self-care (01) | DRG 281 ==
LOC: JER 17:38 → JERBED 22:43 → J4S 05-13 18:39
PROVIDERS: ADMIT Family Medicine; ATTEND Internal Medicine
DX: I21.4 Non-ST elevation (NSTEMI) myocardial infarction (principal); E44.0 Moderate protein-calorie malnutrition; I50.22 Chronic systolic (congestive) heart failure; Z68.1 Body mass index [BMI] 19.9 or less, adult; R64 Cachexia; I16.0 Hypertensive urgency; I48.91 Unspecified atrial fibrillation; F01.50 Vascular dementia, unspecified severity, without behavioral disturbance, psychotic disturbance, mood disturbance, and anxiety; E86.0 Dehydration
CPT/HCPCS: 0241U-QW; 36415; 71045-TC-FY; 76775-TC; 76856-TC; 80048; 80053; 80061; 81003; 82550; 82553; 82962; 83036; 83605; 83690; 83735; 83880; 84100; 84443; 84484; 85025; 85027; 85610; 85730; 87070; 87086; 87205; 93005; 93010; 93306-TC; 97161-GP; 99285-25

== ENCOUNTER 2023-06-10 15:18 | Inpatient (IN) | payer OTHER ==
[2023-06-10] MEDS ORDERED: SODIUM CHLORIDE 1,000 ML IV STA (17:16)
[2023-06-10] MEDS ORDERED: PIPERACILLIN/TAZOB 3.375 GM 3.375 GM in DEXTROSE 5%-WATER - 50 ML IVPB ONE (17:18)
[2023-06-10] MEDS ORDERED: VANCOMYCIN 1,000 MG in DEXTROSE 5%-WATER - 250 ML IVPB ONE (17:22)
[2023-06-10] MEDS ORDERED: VANCOMYCIN 1 GRAM (PRE-DOCKED) 1,000 MG/250 ML BAG IVPB ONE (18:12)
[2023-06-10 18:30] LABS: BASO % 0.4 % (0-2.0); EOS % 0.9 % (0-4.5); HEMATOCRIT 31.9 % (32.4-45.2); HEMOGLOBIN 10.4 GM/dL (10.7-15.3); MCH 24.3 pg (25.7-33.7); MCHC 32.6 g/dl (32.0-36.0); MEAN CELL VOLUME 74.5 fl (80-96); MEAN PLT VOLUME 8.2 fl (7.5-11.1); MONO % 6.5 % (3.8-10.2); NEUT % 83.2 % (42.8-82.8); PLATELET COUNT 408 10^3/uL (134-434); RBC 4.28 M/mm3 (3.60-5.2); RDW 14.8 % (11.6-15.6); WHITE BLOOD COUNT 6.2 K/mm3 (4.0-10.0)
[2023-06-10 18:31] LABS: PH,URINE 5.5 (5.0-8.0); URINE APPEARANCE CLEAR; URINE BILIRUBIN NEGATIVE (NEGATIVE); URINE COLOR DK YELLOW; URINE GLUCOSE (UA) NEGATIVE (NEGATIVE); URINE KETONE TRACE (NEGATIVE); URINE LEUK ESTERASE NEGATIVE (NEGATIVE); URINE NITRITE NEGATIVE (NEGATIVE); URINE PROTEIN TRACE (NEGATIVE)
[2023-06-10 18:38] LABS: INR 2.06 (0.83-1.09); PROTHROMBIN TIME (PATIENT) 23.7 SEC (9.7-13.0)
[2023-06-10 18:41] LABS: ACTIVATED PTT 36.4 SECONDS (25.2-36.5)
[2023-06-10 18:49] LABS: POTASSIUM 3.9 mmol/L (3.5-5.1)
[2023-06-10 18:52] LABS: CALCIUM 9.6 mg/dL (8.5-10.1)
[2023-06-10 18:53] LABS: ALBUMIN 2.3 g/dl (3.4-5.0)
[2023-06-10] MEDS ORDERED: PIPERACILLIN/TAZOB 3.375 GM 3.375 GM/50 ML BAG IVPB ONE (18:54)
[2023-06-10 18:56] LABS: CREATININE 0.8 mg/dL (0.55-1.3)
[2023-06-10 18:57] LABS: BILIRUBIN,TOTAL 0.7 mg/dL (0.2-1); TOT PROT 7.7 g/dl (6.4-8.2)
[2023-06-10 19:10] LABS: ERYTHROCYTE SEDIMENTATION RATE 97 mm/hr (0-30)
[2023-06-11] MEDS ORDERED: VANCOMYCIN 1,000 MG in DEXTROSE 5%-WATER - 250 ML IVPB SCH (02:00)
[2023-06-11] MEDS ORDERED: APIXABAN 5 MG TABLET ONE (02:04)
[2023-06-11] MEDS ORDERED: PANTOPRAZOLE 40 MG TABLET PO ONE (02:04)
[2023-06-11] MEDS ORDERED: NAPROXEN 500 MG TABLET ONE (02:04)
[2023-06-11] MEDS ORDERED: CARVEDILOL 12.5 MG TABLET (FP) ONE (02:04)
[2023-06-11] MEDS ORDERED: ATORVASTATIN CA 80 MG TABLET (FP) ONE (02:05)
[2023-06-11] MEDS ORDERED: MIRTAZAPINE 15 MG TABLET (FP) ONE (02:05)
[2023-06-11] MEDS ORDERED: MEROPENEM 1 GM VIAL (RESTRICTED TO ID) IVPB ONE (03:38)
[2023-06-11] MEDS: MEROPENEM 1 GM in DEXTROSE 5%-WATER 100 ML IVPB SCH ×3 (04:39→14:43)
[2023-06-11 05:11] LABS: CHLORIDE 113 mmol/L (98-107); SODIUM 143 mmol/L (136-145)
[2023-06-11 05:15] LABS: BLOOD UREA NITROGEN 32.2 mg/dL (7-18); CO2 25 mmol/L (21-32); GLUCOSE,RANDOM 101 mg/dL (74-106)
[2023-06-11 05:16] LABS: IRON SERUM 50 ug/dL (50-175)
[2023-06-11 05:17] LABS: CREATININE 0.8 mg/dL (0.55-1.3); IRON SERUM 70 ug/dL (50-175); PHOSPHOROUS 3.4 mg/dL (2.5-4.9); SGOT/AST 107 U/L (15-37); SGPT/ALT 132 U/L (13-61); TOTAL IRON BINDING CAPACITY 178 ug/dL (250-450)
[2023-06-11 05:17] LABS: TOTAL IRON BINDING CAPACITY 189 ug/dL (250-450)
[2023-06-11 05:19] LABS: TOT PROT 7.5 g/dl (6.4-8.2)
[2023-06-11 05:21] LABS: ALK PHOS 128 U/L (45-117)
[2023-06-11] MEDS: PANTOPRAZOLE 40 MG TABLET PO SCH ×2 (05:22→09:20)
[2023-06-11] MEDS: MIRTAZAPINE 15 MG TABLET (FP) PO SCH ×2 (05:22→21:22)
[2023-06-11] MEDS: ATORVASTATIN CA 80 MG TABLET (FP) PO SCH ×2 (05:22→21:22)
[2023-06-11] MEDS: CARVEDILOL 12.5 MG TABLET (FP) PO SCH ×3 (05:23→21:22)
[2023-06-11] MEDS: SACUBITRIL/VALSARTAN 97 MG-103 MG TABLET PO SCH ×3 (05:23→21:26)
[2023-06-11] MEDS: APIXABAN 5 MG TABLET PO SCH ×2 (05:23→09:21)
[2023-06-11] MEDS: NAPROXEN 250 MG TABLET PO SCH ×2 (05:23→11:58)
[2023-06-11 05:24] LABS: ANION GAP 5 mmol/L (4-13); POTASSIUM 7.1 mmol/L (3.5-5.1)
[2023-06-11] MEDS ORDERED: VANCOMYCIN/WATER FOR INJ (PEG) 1,000 MG/200 ML BAG IVPB SCH (06:00)
[2023-06-11 11:53] LABS: HEMATOCRIT 29.4 % (32.4-45.2); HEMOGLOBIN 9.6 GM/dL (10.7-15.3); MCH 24.6 pg (25.7-33.7); MCHC 32.5 g/dl (32.0-36.0); MEAN CELL VOLUME 75.8 fl (80-96); MEAN PLT VOLUME 8.7 fl (7.5-11.1); PLATELET COUNT 336 10^3/uL (134-434); RBC 3.88 M/mm3 (3.60-5.2); RDW 14.7 % (11.6-15.6); WHITE BLOOD COUNT 5.6 K/mm3 (4.0-10.0)
[2023-06-11 12:11] LABS: POTASSIUM 4.1 mmol/L (3.5-5.1)
[2023-06-11 12:13] LABS: BLOOD UREA NITROGEN 33.8 mg/dL (7-18)
[2023-06-11] MEDS ORDERED: DEXTROSE 5%-0.45% SALINE 1,000 ML IV SCH (12:15)
[2023-06-11 12:16] LABS: CREATININE 0.7 mg/dL (0.55-1.3)
[2023-06-11 12:17] LABS: TOT PROT 6.4 g/dl (6.4-8.2)
[2023-06-11 12:18] LABS: BILIRUBIN,TOTAL 0.6 mg/dL (0.2-1)
[2023-06-11] MEDS: PIPERACILLIN/TAZOB 3.375 GM 3.375 GM in DEXTROSE 5%-WATER - 50 ML IVPB SCH ×2 (13:54→17:37)
[2023-06-11] MEDS: AMINO ACIDS 4.25%/D5W 1,000 ML IV SCH (13:57)
[2023-06-11 14:06] VITALS: BMI 20.3
[2023-06-11] MEDS: AMINO ACIDS/PROTEIN HYDROLYS 30 ML LIQUID.PKT PO SCH (17:37)
[2023-06-11] MEDS: ENOXAPARIN NA (PORCINE) 60 MG/0.6 ML DISP.SYRIN SQ SCH (18:58)
[2023-06-12] MEDS: PIPERACILLIN/TAZOB 3.375 GM 3.375 GM in DEXTROSE 5%-WATER - 50 ML IVPB SCH ×3 (01:21→19:45)
[2023-06-12] MEDS: ENOXAPARIN NA (PORCINE) 60 MG/0.6 ML DISP.SYRIN SQ SCH ×2 (06:18→19:45)
[2023-06-12] MEDS: PANTOPRAZOLE 40 MG TABLET PO SCH (12:14)
[2023-06-12] MEDS: AMINO ACIDS/PROTEIN HYDROLYS 30 ML LIQUID.PKT PO SCH ×2 (12:14→19:25)
[2023-06-12] MEDS: ASCORBIC ACID 500 MG TABLET (FP) PO SCH (12:14)
[2023-06-12] MEDS: CARVEDILOL 12.5 MG TABLET (FP) PO SCH ×2 (12:14→22:27)
[2023-06-12] MEDS: SACUBITRIL/VALSARTAN 97 MG-103 MG TABLET PO SCH ×2 (12:15→23:21)
[2023-06-12] MEDS: AMINO ACIDS 4.25%/D5W 1,000 ML IV SCH (12:54)
[2023-06-12] MEDS: MIRTAZAPINE 15 MG TABLET (FP) PO SCH (22:27)
[2023-06-12] MEDS: ATORVASTATIN CA 80 MG TABLET (FP) PO SCH (22:27)
[2023-06-13] MEDS: PIPERACILLIN/TAZOB 3.375 GM 3.375 GM in DEXTROSE 5%-WATER - 50 ML IVPB SCH ×2 (02:29→10:53)
[2023-06-13] MEDS ORDERED: VANCOMYCIN/WATER FOR INJ (PEG) 1,000 MG/200 ML BAG IVPB ONE (03:39)
[2023-06-13] MEDS: ENOXAPARIN NA (PORCINE) 60 MG/0.6 ML DISP.SYRIN SQ SCH ×2 (07:02→17:54)
[2023-06-13 08:28] LABS: BASO % 0.5 % (0-2.0); EOS % 3.8 % (0-4.5); HEMATOCRIT 27.6 % (32.4-45.2); LYMPH % 13.7 % (8-40); MCH 24.4 pg (25.7-33.7); MCHC 32.6 g/dl (32.0-36.0); MEAN PLT VOLUME 8.5 fl (7.5-11.1); MONO % 4.6 % (3.8-10.2); NEUT % 77.4 % (42.8-82.8); PLATELET COUNT 364 10^3/uL (134-434); RBC 3.69 M/mm3 (3.60-5.2); RDW 14.6 % (11.6-15.6); WHITE BLOOD COUNT 7.4 K/mm3 (4.0-10.0)
[2023-06-13 08:47] LABS: POTASSIUM 3.7 mmol/L (3.5-5.1)
[2023-06-13 08:57] LABS: BLOOD UREA NITROGEN 37.3 mg/dL (7-18); CALCIUM 8.8 mg/dL (8.5-10.1); MAGNESIUM 1.8 mg/dL (1.8-2.4)
[2023-06-13 09:00] LABS: CREATININE 0.8 mg/dL (0.55-1.3)
[2023-06-13 09:02] LABS: BILIRUBIN,TOTAL 1.3 mg/dL (0.2-1)
[2023-06-13 09:04] LABS: TOT PROT 6.3 g/dl (6.4-8.2)
[2023-06-13] MEDS ORDERED: ACETAMINOPHEN 1000 MG/100 ML BAG IVPB PRN (10:53)
[2023-06-13] MEDS: AMINO ACIDS/PROTEIN HYDROLYS 30 ML LIQUID.PKT PO SCH ×2 (10:54→17:52)
[2023-06-13] MEDS: ASCORBIC ACID 500 MG TABLET (FP) PO SCH (10:55)
[2023-06-13] MEDS: PANTOPRAZOLE 40 MG TABLET PO SCH (10:55)
[2023-06-13] MEDS: CARVEDILOL 12.5 MG TABLET (FP) PO SCH ×3 (10:55→22:20)
[2023-06-13] MEDS: SACUBITRIL/VALSARTAN 97 MG-103 MG TABLET PO SCH ×3 (11:14→22:18)
[2023-06-13] MEDS: AMINO ACIDS 4.25%/D5W 1,000 ML IV SCH (13:02)
[2023-06-13] MEDS: MEROPENEM 1 GM in DEXTROSE 5%-WATER 100 ML IVPB SCH (17:52)
[2023-06-13] MEDS ORDERED: SODIUM CHLORIDE 250 ML IV STA (18:05)
[2023-06-13] MEDS: ATORVASTATIN CA 80 MG TABLET (FP) PO SCH (22:18)
[2023-06-13] MEDS: MIRTAZAPINE 15 MG TABLET (FP) PO SCH (22:18)
[2023-06-14] MEDS: MEROPENEM 1 GM in DEXTROSE 5%-WATER 100 ML IVPB SCH ×3 (01:50→17:45)
[2023-06-14] MEDS: ENOXAPARIN NA (PORCINE) 60 MG/0.6 ML DISP.SYRIN SQ SCH ×2 (06:07→17:45)
[2023-06-14 08:06] LABS: BASO % 0.4 % (0-2.0); EOS % 4.5 % (0-4.5); HEMATOCRIT 27.9 % (32.4-45.2); HEMOGLOBIN 8.9 GM/dL (10.7-15.3); LYMPH % 12.7 % (8-40); MCH 23.9 pg (25.7-33.7); MCHC 31.9 g/dl (32.0-36.0); MEAN CELL VOLUME 74.8 fl (80-96); MEAN PLT VOLUME 8.4 fl (7.5-11.1); MONO % 6.1 % (3.8-10.2); NEUT % 76.3 % (42.8-82.8); PLATELET COUNT 362 10^3/uL (134-434); RBC 3.73 M/mm3 (3.60-5.2); RDW 15.1 % (11.6-15.6); WHITE BLOOD COUNT 7.7 K/mm3 (4.0-10.0)
[2023-06-14 08:25] LABS: POTASSIUM 3.3 mmol/L (3.5-5.1)
[2023-06-14 08:34] LABS: BILIRUBIN,TOTAL 0.3 mg/dL (0.2-1); BLOOD UREA NITROGEN 37.7 mg/dL (7-18); CREATININE 0.7 mg/dL (0.55-1.3)
[2023-06-14 08:35] LABS: ALBUMIN 1.9 g/dl (3.4-5.0); TOT PROT 6.2 g/dl (6.4-8.2)
[2023-06-14 08:39] LABS: CALCIUM 8.7 mg/dL (8.5-10.1)
[2023-06-14 08:40] LABS: MAGNESIUM 1.8 mg/dL (1.8-2.4)
[2023-06-14] MEDS: PANTOPRAZOLE 40 MG TABLET PO SCH (11:05)
[2023-06-14] MEDS: AMINO ACIDS/PROTEIN HYDROLYS 30 ML LIQUID.PKT PO SCH ×2 (11:06→17:45)
[2023-06-14] MEDS: ASCORBIC ACID 500 MG TABLET (FP) PO SCH (11:06)
[2023-06-14] MEDS: CARVEDILOL 12.5 MG TABLET (FP) PO SCH ×2 (11:06→22:33)
[2023-06-14] MEDS: SACUBITRIL/VALSARTAN 97 MG-103 MG TABLET PO SCH ×2 (11:06→22:33)
[2023-06-14] MEDS: AMINO ACIDS 4.25%/D5W 1,000 ML IV SCH (12:51)
[2023-06-14] MEDS: ATORVASTATIN CA 80 MG TABLET (FP) PO SCH (22:33)
[2023-06-14] MEDS: MIRTAZAPINE 15 MG TABLET (FP) PO SCH (22:33)
[2023-06-15] MEDS: MEROPENEM 1 GM in DEXTROSE 5%-WATER 100 ML IVPB SCH ×3 (02:26→17:42)
[2023-06-15] MEDS: ENOXAPARIN NA (PORCINE) 60 MG/0.6 ML DISP.SYRIN SQ SCH ×2 (06:04→17:42)
[2023-06-15] MEDS: SACUBITRIL/VALSARTAN 97 MG-103 MG TABLET PO SCH ×2 (09:58→22:19)
[2023-06-15] MEDS: ASCORBIC ACID 500 MG TABLET (FP) PO SCH (09:58)
[2023-06-15] MEDS: PANTOPRAZOLE 40 MG TABLET PO SCH (09:58)
[2023-06-15] MEDS: CARVEDILOL 12.5 MG TABLET (FP) PO SCH ×2 (09:58→22:19)
[2023-06-15] MEDS: AMINO ACIDS/PROTEIN HYDROLYS 30 ML LIQUID.PKT PO SCH (09:58)
[2023-06-15 11:04] LABS: BASO % 0.5 % (0-2.0); EOS % 3.6 % (0-4.5); HEMATOCRIT 26.6 % (32.4-45.2); HEMOGLOBIN 8.7 GM/dL (10.7-15.3); LYMPH % 14.3 % (8-40); MCH 24.2 pg (25.7-33.7); MCHC 32.8 g/dl (32.0-36.0); MEAN CELL VOLUME 73.9 fl (80-96); MONO % 4.9 % (3.8-10.2); NEUT % 76.7 % (42.8-82.8); PLATELET COUNT 362 10^3/uL (134-434); RDW 14.8 % (11.6-15.6); WHITE BLOOD COUNT 6.9 K/mm3 (4.0-10.0)
[2023-06-15 11:10] LABS: INR 1.44 (0.83-1.09); PROTHROMBIN TIME (PATIENT) 16.7 SEC (9.7-13.0)
[2023-06-15 11:31] LABS: POTASSIUM 3.4 mmol/L (3.5-5.1)
[2023-06-15 11:33] LABS: CALCIUM 8.5 mg/dL (8.5-10.1)
[2023-06-15 11:34] LABS: ALBUMIN 1.8 g/dl (3.4-5.0); BLOOD UREA NITROGEN 33.8 mg/dL (7-18); MAGNESIUM 1.6 mg/dL (1.8-2.4)
[2023-06-15 11:37] LABS: CREATININE 0.6 mg/dL (0.55-1.3)
[2023-06-15 11:38] LABS: BILIRUBIN,TOTAL 0.3 mg/dL (0.2-1); TOT PROT 5.9 g/dl (6.4-8.2)
[2023-06-15] MEDS: AMINO ACIDS 4.25%/D5W 1,000 ML IV SCH ×2 (14:05→16:28)
[2023-06-15] MEDS: ATORVASTATIN CA 80 MG TABLET (FP) PO SCH (22:19)
[2023-06-15] MEDS: MIRTAZAPINE 15 MG TABLET (FP) PO SCH (22:19)
[2023-06-16] MEDS: MEROPENEM 1 GM in DEXTROSE 5%-WATER 100 ML IVPB SCH ×3 (01:29→17:51)
[2023-06-16] MEDS: ENOXAPARIN NA (PORCINE) 60 MG/0.6 ML DISP.SYRIN SQ SCH (05:54)
[2023-06-16] MEDS: AMINO ACIDS 4.25%/D5W 1,000 ML IV SCH ×2 (06:03→17:52)
[2023-06-16 08:48] LABS: BASO % 0.6 % (0-2.0); EOS % 3.1 % (0-4.5); HEMATOCRIT 29.2 % (32.4-45.2); HEMOGLOBIN 9.4 GM/dL (10.7-15.3); LYMPH % 15.9 % (8-40); MCH 24.1 pg (25.7-33.7); MCHC 32.3 g/dl (32.0-36.0); MEAN CELL VOLUME 74.7 fl (80-96); MEAN PLT VOLUME 8.6 fl (7.5-11.1); MONO % 8.1 % (3.8-10.2); NEUT % 72.3 % (42.8-82.8); PLATELET COUNT 355 10^3/uL (134-434); RBC 3.91 M/mm3 (3.60-5.2); RDW 14.8 % (11.6-15.6); WHITE BLOOD COUNT 6.5 K/mm3 (4.0-10.0)
[2023-06-16 09:18] LABS: POTASSIUM 3.5 mmol/L (3.5-5.1)
[2023-06-16 09:32] LABS: ALBUMIN 1.9 g/dl (3.4-5.0); MAGNESIUM 1.7 mg/dL (1.8-2.4)
[2023-06-16 09:35] LABS: CREATININE 0.6 mg/dL (0.55-1.3)
[2023-06-16 09:36] LABS: BILIRUBIN,TOTAL 0.4 mg/dL (0.2-1); TOT PROT 6.2 g/dl (6.4-8.2)
[2023-06-16] MEDS: SACUBITRIL/VALSARTAN 97 MG-103 MG TABLET PO SCH ×2 (10:19→22:11)
[2023-06-16] MEDS: CARVEDILOL 12.5 MG TABLET (FP) PO SCH ×2 (10:19→22:11)
[2023-06-16] MEDS: PANTOPRAZOLE 40 MG TABLET PO SCH (10:19)
[2023-06-16] MEDS: ASCORBIC ACID 500 MG TABLET (FP) PO SCH (10:19)
[2023-06-16] MEDS ORDERED: POTASSIUM CHLORIDE ORAL LIQUID 20 MEQ/15 ML PO ONE (11:53)
[2023-06-16] MEDS: MIRTAZAPINE 15 MG TABLET (FP) PO SCH (22:11)
[2023-06-16] MEDS: ATORVASTATIN CA 80 MG TABLET (FP) PO SCH (22:11)
[2023-06-17] MEDS: MEROPENEM 1 GM in DEXTROSE 5%-WATER 100 ML IVPB SCH ×3 (02:24→17:22)
[2023-06-17] MEDS: AMINO ACIDS 4.25%/D5W 1,000 ML IV SCH ×2 (06:30→17:18)
[2023-06-17] MEDS ORDERED: oxyCODONE HCL 5 MG TABLET PO PRN ×2 (08:31→11:57)
[2023-06-17] MEDS ORDERED: ONDANSETRON 4 MG/2 ML VIAL IVPUSH PRN ×2 (08:31→11:57)
[2023-06-17] MEDS ORDERED: SUCCINYLCHOLINE CHLORIDE 200 MG/10 ML SYRINGE ONE (09:06)
[2023-06-17] MEDS ORDERED: PHENYLEPHRINE HCL 10 MG/1 ML SINGLE DOSE VIAL ONE (10:06)
[2023-06-17] MEDS: CARVEDILOL 12.5 MG TABLET (FP) PO SCH ×2 (10:22→22:27)
[2023-06-17] MEDS: ASCORBIC ACID 500 MG TABLET (FP) PO SCH (10:22)
[2023-06-17] MEDS: SACUBITRIL/VALSARTAN 97 MG-103 MG TABLET PO SCH ×2 (10:22→22:27)
[2023-06-17] MEDS: PANTOPRAZOLE 40 MG TABLET PO SCH (10:22)
[2023-06-17] MEDS ORDERED: DEXAMETHASONE SOD PHOSPHATE 4 MG/1 ML VIAL ONE (10:27)
[2023-06-17] MEDS ORDERED: KETOROLAC TROMETHAMINE 30 MG/1 ML VIAL ONE (10:27)
[2023-06-17] MEDS ORDERED: ONDANSETRON 4 MG/2 ML VIAL ONE (10:27)
[2023-06-17] MEDS ORDERED: LIDOCAINE HCL 1%, 10 MG/ML (20ML VIAL) ONE (10:31)
[2023-06-17] MEDS ORDERED: LIDOCAINE HCL 1%, 10 MG/ML (20ML VIAL) INF ONE (10:47)
[2023-06-17 13:08] LABS: BASO % 0.5 % (0-2.0); EOS % 1.4 % (0-4.5); HEMATOCRIT 27.6 % (32.4-45.2); HEMOGLOBIN 8.9 GM/dL (10.7-15.3); LYMPH % 7.9 % (8-40); MCHC 32.3 g/dl (32.0-36.0); MEAN CELL VOLUME 74.5 fl (80-96); MEAN PLT VOLUME 8.2 fl (7.5-11.1); MONO % 4.2 % (3.8-10.2); PLATELET COUNT 334 10^3/uL (134-434); RDW 15.1 % (11.6-15.6); WHITE BLOOD COUNT 7.3 K/mm3 (4.0-10.0)
[2023-06-17 13:13] LABS: POTASSIUM 3.9 mmol/L (3.5-5.1)
[2023-06-17 13:16] LABS: CALCIUM 8.8 mg/dL (8.5-10.1)
[2023-06-17 13:17] LABS: ALBUMIN 1.9 g/dl (3.4-5.0); BLOOD UREA NITROGEN 25.5 mg/dL (7-18); MAGNESIUM 1.6 mg/dL (1.8-2.4)
[2023-06-17 13:19] LABS: INR 1.37 (0.83-1.09); PROTHROMBIN TIME (PATIENT) 15.8 SEC (9.7-13.0)
[2023-06-17 13:20] LABS: CREATININE 0.6 mg/dL (0.55-1.3)
[2023-06-17 13:21] LABS: BILIRUBIN,TOTAL 0.3 mg/dL (0.2-1); TOT PROT 6.4 g/dl (6.4-8.2)
[2023-06-17] MEDS: MIRTAZAPINE 15 MG TABLET (FP) PO SCH (22:27)
[2023-06-17] MEDS: ATORVASTATIN CA 80 MG TABLET (FP) PO SCH (22:27)
[2023-06-17] MEDS: ENOXAPARIN NA (PORCINE) 60 MG/0.6 ML DISP.SYRIN SQ SCH (22:28)
[2023-06-18] MEDS: AMINO ACIDS 4.25%/D5W 1,000 ML IV SCH (01:00)
[2023-06-18] MEDS: MEROPENEM 1 GM in DEXTROSE 5%-WATER 100 ML IVPB SCH ×3 (01:44→17:58)
[2023-06-18 08:58] LABS: BASO % 0.3 % (0-2.0); EOS % 0.3 % (0-4.5); HEMATOCRIT 25.2 % (32.4-45.2); HEMOGLOBIN 8.2 GM/dL (10.7-15.3); LYMPH % 12.9 % (8-40); MCH 24.1 pg (25.7-33.7); MCHC 32.5 g/dl (32.0-36.0); MEAN CELL VOLUME 74.3 fl (80-96); MEAN PLT VOLUME 8.6 fl (7.5-11.1); MONO % 7.1 % (3.8-10.2); NEUT % 79.4 % (42.8-82.8); PLATELET COUNT 311 10^3/uL (134-434); RBC 3.39 M/mm3 (3.60-5.2)
[2023-06-18] MEDS: ENOXAPARIN NA (PORCINE) 60 MG/0.6 ML DISP.SYRIN SQ SCH (10:15)
[2023-06-18] MEDS: CARVEDILOL 12.5 MG TABLET (FP) PO SCH ×2 (10:15→22:21)
[2023-06-18] MEDS: ASCORBIC ACID 500 MG TABLET (FP) PO SCH (10:15)
[2023-06-18] MEDS: PANTOPRAZOLE 40 MG TABLET PO SCH (10:15)
[2023-06-18 10:32] LABS: POTASSIUM 3.9 mmol/L (3.5-5.1)
[2023-06-18 10:36] LABS: ALBUMIN 1.8 g/dl (3.4-5.0); BLOOD UREA NITROGEN 31.7 mg/dL (7-18); CALCIUM 8.8 mg/dL (8.5-10.1); MAGNESIUM 1.7 mg/dL (1.8-2.4)
[2023-06-18 10:39] LABS: CREATININE 0.6 mg/dL (0.55-1.3)
[2023-06-18 10:41] LABS: BILIRUBIN,TOTAL 0.3 mg/dL (0.2-1); TOT PROT 5.9 g/dl (6.4-8.2)
[2023-06-18] MEDS: SACUBITRIL/VALSARTAN 97 MG-103 MG TABLET PO SCH ×2 (10:47→22:21)
[2023-06-18] MEDS ORDERED: MAGNESIUM SULF 50% (8.12 MEQ/2 ML-1 GM VIAL) IVPB ONE (11:00)
[2023-06-18] MEDS ORDERED: SODIUM CHLORIDE 1,000 ML IV STA (15:19)
[2023-06-18 15:54] LABS: BASO % 0.3 % (0-2.0); EOS % 0.9 % (0-4.5); HEMATOCRIT 18.3 % (32.4-45.2); LYMPH % 17.6 % (8-40); MCH 24.6 pg (25.7-33.7); MCHC 32.7 g/dl (32.0-36.0); MEAN CELL VOLUME 75.2 fl (80-96); MEAN PLT VOLUME 8.5 fl (7.5-11.1); MONO % 9.7 % (3.8-10.2); NEUT % 71.5 % (42.8-82.8); PLATELET COUNT 277 10^3/uL (134-434); RBC 2.43 M/mm3 (3.60-5.2); RDW 15.5 % (11.6-15.6); WHITE BLOOD COUNT 6.1 K/mm3 (4.0-10.0)
[2023-06-18 16:01] LABS: INR 1.38 (0.83-1.09); PROTHROMBIN TIME (PATIENT) 15.9 SEC (9.7-13.0)
[2023-06-18 16:04] LABS: ACTIVATED PTT 35.8 SECONDS (25.2-36.5)
[2023-06-18] MEDS: ATORVASTATIN CA 80 MG TABLET (FP) PO SCH (22:21)
[2023-06-18] MEDS: MIRTAZAPINE 15 MG TABLET (FP) PO SCH (22:21)
[2023-06-19] MEDS: AMINO ACIDS 4.25%/D5W 1,000 ML IV SCH ×2 (00:19→18:07)
[2023-06-19] MEDS: MEROPENEM 1 GM in DEXTROSE 5%-WATER 100 ML IVPB SCH ×3 (02:59→17:55)
[2023-06-19 09:42] LABS: BASO % 0.5 % (0-2.0); EOS % 1.5 % (0-4.5); HEMATOCRIT 22.9 % (32.4-45.2); HEMOGLOBIN 7.6 GM/dL (10.7-15.3); LYMPH % 12.3 % (8-40); MCH 25.9 pg (25.7-33.7); MCHC 33.3 g/dl (32.0-36.0); MEAN CELL VOLUME 77.7 fl (80-96); MEAN PLT VOLUME 8.5 fl (7.5-11.1); NEUT % 78.7 % (42.8-82.8); PLATELET COUNT 242 10^3/uL (134-434); RBC 2.95 M/mm3 (3.60-5.2); RDW 17.1 % (11.6-15.6); WHITE BLOOD COUNT 7.9 K/mm3 (4.0-10.0)
[2023-06-19] MEDS: CARVEDILOL 12.5 MG TABLET (FP) PO SCH ×2 (09:59→22:38)
[2023-06-19] MEDS: ASCORBIC ACID 500 MG TABLET (FP) PO SCH (09:59)
[2023-06-19] MEDS: PANTOPRAZOLE 40 MG TABLET PO SCH (09:59)
[2023-06-19] MEDS: SACUBITRIL/VALSARTAN 97 MG-103 MG TABLET PO SCH ×2 (10:00→22:38)
[2023-06-19] MEDS ORDERED: ENOXAPARIN NA (PORCINE) 40 MG/0.4 ML DISP.SYRIN SQ SCH (10:00)
[2023-06-19 10:01] LABS: POTASSIUM 3.4 mmol/L (3.5-5.1)
[2023-06-19 10:10] LABS: ALBUMIN 1.6 g/dl (3.4-5.0); BLOOD UREA NITROGEN 28.7 mg/dL (7-18); CALCIUM 7.9 mg/dL (8.5-10.1)
[2023-06-19 10:13] LABS: CREATININE 0.6 mg/dL (0.55-1.3)
[2023-06-19 10:15] LABS: TOT PROT 5.2 g/dl (6.4-8.2)
[2023-06-19 10:18] LABS: BILIRUBIN,TOTAL 0.7 mg/dL (0.2-1)
[2023-06-19] MEDS: ATORVASTATIN CA 80 MG TABLET (FP) PO SCH (22:38)
[2023-06-19] MEDS: MIRTAZAPINE 15 MG TABLET (FP) PO SCH (22:38)
[2023-06-20] MEDS: MEROPENEM 1 GM in DEXTROSE 5%-WATER 100 ML IVPB SCH ×2 (02:39→09:24)
[2023-06-20] MEDS: ASCORBIC ACID 500 MG TABLET (FP) PO SCH (09:25)
[2023-06-20] MEDS: CARVEDILOL 12.5 MG TABLET (FP) PO SCH ×2 (09:25→21:35)
[2023-06-20] MEDS: PANTOPRAZOLE 40 MG TABLET PO SCH (09:25)
[2023-06-20] MEDS: SACUBITRIL/VALSARTAN 97 MG-103 MG TABLET PO SCH ×2 (09:25→21:35)
[2023-06-20] MEDS: ENOXAPARIN NA (PORCINE) 60 MG/0.6 ML DISP.SYRIN SQ SCH (09:25)
[2023-06-20 10:14] LABS: POTASSIUM 4.1 mmol/L (3.5-5.1)
[2023-06-20 10:15] LABS: CALCIUM 8.3 mg/dL (8.5-10.1)
[2023-06-20 10:16] LABS: BLOOD UREA NITROGEN 22.2 mg/dL (7-18)
[2023-06-20 10:19] LABS: CREATININE 0.5 mg/dL (0.55-1.3)
[2023-06-20 13:27] LABS: BASO % 0.1 % (0-2.0); EOS % 1.1 % (0-4.5); HEMATOCRIT 22.1 % (32.4-45.2); HEMOGLOBIN 7.4 GM/dL (10.7-15.3); LYMPH % 6.5 % (8-40); MCHC 33.6 g/dl (32.0-36.0); MEAN CELL VOLUME 77.3 fl (80-96); MEAN PLT VOLUME 8.6 fl (7.5-11.1); MONO % 6.5 % (3.8-10.2); NEUT % 85.8 % (42.8-82.8); PLATELET COUNT 240 10^3/uL (134-434); RBC 2.85 M/mm3 (3.60-5.2); RDW 17.9 % (11.6-15.6); WHITE BLOOD COUNT 10.6 K/mm3 (4.0-10.0)
[2023-06-20] MEDS: ATORVASTATIN CA 80 MG TABLET (FP) PO SCH (21:35)
[2023-06-20] MEDS: MIRTAZAPINE 15 MG TABLET (FP) PO SCH (21:35)
[2023-06-21] MEDS: ASCORBIC ACID 500 MG TABLET (FP) PO SCH (10:30)
[2023-06-21] MEDS: PANTOPRAZOLE 40 MG TABLET PO SCH (10:30)
[2023-06-21] MEDS: CARVEDILOL 12.5 MG TABLET (FP) PO SCH ×2 (10:30→21:55)
[2023-06-21] MEDS: SACUBITRIL/VALSARTAN 97 MG-103 MG TABLET PO SCH ×2 (10:30→21:55)
[2023-06-21] MEDS: ATORVASTATIN CA 80 MG TABLET (FP) PO SCH (21:54)
[2023-06-21] MEDS: MIRTAZAPINE 15 MG TABLET (FP) PO SCH (21:54)
[2023-06-21] MEDS ORDERED: SODIUM CHLORIDE 500 ML IV STA (22:59)
[2023-06-21] MEDS ORDERED: MEROPENEM 1 GM in DEXTROSE 5%-WATER 100 ML IVPB ONE (23:58)
[2023-06-22] MEDS ORDERED: SODIUM CHLORIDE 500 ML IV STA (01:20)
[2023-06-22] MEDS ORDERED: MEROPENEM 1 GM VIAL (RESTRICTED TO ID) IVPB ONE (01:33)
[2023-06-22 10:14] LABS: BASO % 0.2 % (0-2.0); EOS % 1.4 % (0-4.5); HEMATOCRIT 20.2 % (32.4-45.2); LYMPH % 9.8 % (8-40); MCH 25.4 pg (25.7-33.7); MCHC 32.6 g/dl (32.0-36.0); MEAN CELL VOLUME 77.8 fl (80-96); MEAN PLT VOLUME 8.7 fl (7.5-11.1); MONO % 10.9 % (3.8-10.2); NEUT % 77.7 % (42.8-82.8); PLATELET COUNT 208 10^3/uL (134-434); RDW 19.2 % (11.6-15.6); WHITE BLOOD COUNT 6.1 K/mm3 (4.0-10.0)
[2023-06-22 10:24] LABS: HEMOGLOBIN 6.6 GM/dL (10.7-15.3)
[2023-06-22 10:32] LABS: POTASSIUM 4.1 mmol/L (3.5-5.1)
[2023-06-22 10:35] LABS: BLOOD UREA NITROGEN 22.1 mg/dL (7-18)
[2023-06-22 10:38] LABS: ALBUMIN 1.4 g/dl (3.4-5.0); PHOSPHOROUS 1.6 mg/dL (2.5-4.9)
[2023-06-22 10:39] LABS: CALCIUM 8.3 mg/dL (8.5-10.1); CREATININE 0.5 mg/dL (0.55-1.3)
[2023-06-22 10:40] LABS: BILIRUBIN,TOTAL 0.4 mg/dL (0.2-1)
[2023-06-22 10:42] LABS: TOT PROT 4.8 g/dl (6.4-8.2)
[2023-06-22] MEDS: PANTOPRAZOLE 40 MG TABLET PO SCH (11:04)
[2023-06-22] MEDS: ASCORBIC ACID 500 MG TABLET (FP) PO SCH (11:04)
[2023-06-22] MEDS: SACUBITRIL/VALSARTAN 97 MG-103 MG TABLET PO SCH ×2 (11:04→22:31)
[2023-06-22] MEDS: CARVEDILOL 12.5 MG TABLET (FP) PO SCH ×2 (11:05→22:29)
[2023-06-22] MEDS ORDERED: ACETAMINOPHEN 1000 MG/100 ML BAG IVPB PRN (15:32)
[2023-06-22 17:47] LABS: EPI CELLS 3 /uL (0-25.1); HYALINE CASTS 0 /uL (0-3.1); PH,URINE 5.5 (5.0-8.0); URINE APPEARANCE TURBID; URINE BACTERIA 4 /uL (0-1359); URINE BILIRUBIN NEGATIVE (NEGATIVE); URINE COLOR DK YELLOW; URINE GLUCOSE (UA) NEGATIVE (NEGATIVE); URINE KETONE NEGATIVE (NEGATIVE); URINE LEUK ESTERASE 1+ (NEGATIVE); URINE NITRITE NEGATIVE (NEGATIVE); URINE PROTEIN 2+ (NEGATIVE); URINE RBC 136 /uL (0-23.9); URINE WBC 6 /uL (0-25.8)
[2023-06-22] MEDS: ATORVASTATIN CA 80 MG TABLET (FP) PO SCH (22:30)
[2023-06-22] MEDS: MIRTAZAPINE 15 MG TABLET (FP) PO SCH (22:30)
[2023-06-23 00:05] LABS: URINE CRYSTALS MANY /hpf
[2023-06-23 09:10] LABS: BASO % 0.4 % (0-2.0); HEMATOCRIT 24.2 % (32.4-45.2); LYMPH % 12.3 % (8-40); MCH 25.7 pg (25.7-33.7); MEAN CELL VOLUME 77.9 fl (80-96); MEAN PLT VOLUME 8.3 fl (7.5-11.1); NEUT % 76.3 % (42.8-82.8); PLATELET COUNT 219 10^3/uL (134-434); RDW 18.8 % (11.6-15.6); WHITE BLOOD COUNT 4.4 K/mm3 (4.0-10.0)
[2023-06-23 09:40] LABS: POTASSIUM 4.2 mmol/L (3.5-5.1)
[2023-06-23 09:49] LABS: CALCIUM 8.4 mg/dL (8.5-10.1)
[2023-06-23 09:50] LABS: BLOOD UREA NITROGEN 18.6 mg/dL (7-18)
[2023-06-23 09:52] LABS: CREATININE 0.5 mg/dL (0.55-1.3)
[2023-06-23] MEDS: PANTOPRAZOLE 40 MG TABLET PO SCH (11:43)
[2023-06-23] MEDS: CARVEDILOL 12.5 MG TABLET (FP) PO SCH ×2 (11:43→22:25)
[2023-06-23] MEDS: ASCORBIC ACID 500 MG TABLET (FP) PO SCH (11:43)
[2023-06-23] MEDS: SACUBITRIL/VALSARTAN 97 MG-103 MG TABLET PO SCH ×2 (11:44→22:27)
[2023-06-23] MEDS: MIRTAZAPINE 15 MG TABLET (FP) PO SCH (22:21)
[2023-06-23] MEDS: ATORVASTATIN CA 80 MG TABLET (FP) PO SCH (22:23)
[2023-06-24] MEDS: PANTOPRAZOLE 40 MG TABLET PO SCH (11:04)
[2023-06-24] MEDS: CARVEDILOL 12.5 MG TABLET (FP) PO SCH ×2 (11:05→22:11)
[2023-06-24] MEDS: SACUBITRIL/VALSARTAN 97 MG-103 MG TABLET PO SCH ×2 (11:05→22:11)
[2023-06-24] MEDS: ASCORBIC ACID 500 MG TABLET (FP) PO SCH (11:05)
[2023-06-24] MEDS: ATORVASTATIN CA 80 MG TABLET (FP) PO SCH (22:11)
[2023-06-24] MEDS: MIRTAZAPINE 15 MG TABLET (FP) PO SCH (22:11)
[2023-06-25] MEDS: ENOXAPARIN NA (PORCINE) 60 MG/0.6 ML DISP.SYRIN SQ SCH ×2 (10:16→21:31)
[2023-06-25] MEDS: CARVEDILOL 12.5 MG TABLET (FP) PO SCH ×2 (10:19→21:31)
[2023-06-25] MEDS: SACUBITRIL/VALSARTAN 97 MG-103 MG TABLET PO SCH ×2 (10:19→21:32)
[2023-06-25] MEDS: PANTOPRAZOLE 40 MG TABLET PO SCH (10:19)
[2023-06-25] MEDS: ASCORBIC ACID 500 MG TABLET (FP) PO SCH (10:19)
[2023-06-25] MEDS: MIRTAZAPINE 15 MG TABLET (FP) PO SCH (21:31)
[2023-06-25] MEDS: ATORVASTATIN CA 80 MG TABLET (FP) PO SCH (21:31)
[2023-06-26] MEDS: ASCORBIC ACID 500 MG TABLET (FP) PO SCH (10:01)
[2023-06-26] MEDS: PANTOPRAZOLE 40 MG TABLET PO SCH (10:01)
[2023-06-26] MEDS: CARVEDILOL 12.5 MG TABLET (FP) PO SCH ×2 (10:01→23:15)
[2023-06-26] MEDS: ENOXAPARIN NA (PORCINE) 60 MG/0.6 ML DISP.SYRIN SQ SCH ×2 (10:01→23:15)
[2023-06-26] MEDS: SACUBITRIL/VALSARTAN 97 MG-103 MG TABLET PO SCH ×2 (10:01→23:15)
[2023-06-26] MEDS: ATORVASTATIN CA 80 MG TABLET (FP) PO SCH (23:14)
[2023-06-26] MEDS: MIRTAZAPINE 15 MG TABLET (FP) PO SCH (23:14)
[2023-06-27 08:37] LABS: BASO % 0.3 % (0-2.0); EOS % 2.8 % (0-4.5); HEMATOCRIT 23.7 % (32.4-45.2); HEMOGLOBIN 7.8 GM/dL (10.7-15.3); LYMPH % 8.7 % (8-40); MCH 25.8 pg (25.7-33.7); MEAN CELL VOLUME 78.2 fl (80-96); MEAN PLT VOLUME 8.1 fl (7.5-11.1); MONO % 6.6 % (3.8-10.2); NEUT % 81.6 % (42.8-82.8); PLATELET COUNT 266 10^3/uL (134-434); RBC 3.03 M/mm3 (3.60-5.2); RDW 19.1 % (11.6-15.6); WHITE BLOOD COUNT 6.9 K/mm3 (4.0-10.0)
[2023-06-27 08:49] LABS: POTASSIUM 4.2 mmol/L (3.5-5.1)
[2023-06-27 09:03] LABS: ALBUMIN 1.5 g/dl (3.4-5.0); BLOOD UREA NITROGEN 15.6 mg/dL (7-18); CALCIUM 8.7 mg/dL (8.5-10.1); MAGNESIUM 2.1 mg/dL (1.8-2.4)
[2023-06-27 09:06] LABS: CREATININE 0.5 mg/dL (0.55-1.3)
[2023-06-27 09:08] LABS: BILIRUBIN,TOTAL 0.3 mg/dL (0.2-1); TOT PROT 5.5 g/dl (6.4-8.2)
[2023-06-27] MEDS: ASCORBIC ACID 500 MG/5 ML UNIT DOSE CUP GT SCH (10:20)
[2023-06-27] MEDS: SACUBITRIL/VALSARTAN 97 MG-103 MG TABLET PEG SCH ×2 (10:20→23:02)
[2023-06-27] MEDS: CARVEDILOL 12.5 MG TABLET (FP) GT SCH ×2 (10:20→23:03)
[2023-06-27] MEDS: ENOXAPARIN NA (PORCINE) 60 MG/0.6 ML DISP.SYRIN SQ SCH ×2 (10:21→23:01)
[2023-06-27] MEDS: FAMOTIDINE 20 MG/2.5 ML ORAL LIQUID PEG SCH (10:21)
[2023-06-27] MEDS: ATORVASTATIN CA 80 MG TABLET (FP) GT SCH (23:03)
[2023-06-27] MEDS: MIRTAZAPINE 15 MG TABLET (FP) GT SCH (23:04)
[2023-06-28] MEDS ORDERED: ACETAMINOPHEN 1000 MG/100 ML BAG IVPB ONE (05:40)
[2023-06-28 09:00] LABS: BASO % 0.4 % (0-2.0); EOS % 2.8 % (0-4.5); HEMATOCRIT 21.7 % (32.4-45.2); HEMOGLOBIN 7.3 GM/dL (10.7-15.3); LYMPH % 9.3 % (8-40); MCH 26.6 pg (25.7-33.7); MCHC 33.7 g/dl (32.0-36.0); MEAN CELL VOLUME 78.9 fl (80-96); MEAN PLT VOLUME 8.2 fl (7.5-11.1); MONO % 8.2 % (3.8-10.2); NEUT % 79.3 % (42.8-82.8); PLATELET COUNT 258 10^3/uL (134-434); RBC 2.75 M/mm3 (3.60-5.2); WHITE BLOOD COUNT 6.8 K/mm3 (4.0-10.0)
[2023-06-28 09:28] LABS: POTASSIUM 4.2 mmol/L (3.5-5.1)
[2023-06-28 09:45] LABS: ALBUMIN 1.4 g/dl (3.4-5.0); BLOOD UREA NITROGEN 16.4 mg/dL (7-18); MAGNESIUM 2.1 mg/dL (1.8-2.4)
[2023-06-28 09:48] LABS: CREATININE 0.5 mg/dL (0.55-1.3)
[2023-06-28 09:49] LABS: BILIRUBIN,TOTAL 0.3 mg/dL (0.2-1)
[2023-06-28] MEDS: ASCORBIC ACID 500 MG/5 ML UNIT DOSE CUP GT SCH (10:45)
[2023-06-28] MEDS: SACUBITRIL/VALSARTAN 97 MG-103 MG TABLET PEG SCH ×2 (10:46→21:39)
[2023-06-28] MEDS: CARVEDILOL 12.5 MG TABLET (FP) GT SCH ×2 (10:46→21:39)
[2023-06-28] MEDS: FAMOTIDINE 20 MG/2.5 ML ORAL LIQUID PEG SCH (10:46)
[2023-06-28] MEDS: ENOXAPARIN NA (PORCINE) 60 MG/0.6 ML DISP.SYRIN SQ SCH (10:46)
[2023-06-28 12:37] LABS: URINE APPEARANCE CLEAR; URINE BILIRUBIN NEGATIVE (NEGATIVE); URINE COLOR YELLOW; URINE GLUCOSE (UA) NEGATIVE (NEGATIVE); URINE KETONE NEGATIVE (NEGATIVE); URINE LEUK ESTERASE NEGATIVE (NEGATIVE); URINE NITRITE NEGATIVE (NEGATIVE); URINE PROTEIN NEGATIVE (NEGATIVE)
[2023-06-28] MEDS: MIRTAZAPINE 15 MG TABLET (FP) GT SCH (21:39)
[2023-06-28] MEDS: ATORVASTATIN CA 80 MG TABLET (FP) GT SCH (21:39)
[2023-06-28] MEDS: APIXABAN 5 MG TABLET PO SCH (21:40)
[2023-06-29 09:26] LABS: BASO % 0.5 % (0-2.0); EOS % 3.1 % (0-4.5); HEMATOCRIT 22.2 % (32.4-45.2); HEMOGLOBIN 7.4 GM/dL (10.7-15.3); LYMPH % 6.9 % (8-40); MCHC 33.2 g/dl (32.0-36.0); MEAN CELL VOLUME 78.2 fl (80-96); MEAN PLT VOLUME 7.8 fl (7.5-11.1); MONO % 7.5 % (3.8-10.2); PLATELET COUNT 268 10^3/uL (134-434); RBC 2.84 M/mm3 (3.60-5.2); RDW 18.8 % (11.6-15.6); WHITE BLOOD COUNT 7.3 K/mm3 (4.0-10.0)
[2023-06-29 10:45] LABS: ALBUMIN 1.4 g/dl (3.4-5.0); BILIRUBIN,TOTAL 0.3 mg/dL (0.2-1); BLOOD UREA NITROGEN 16.3 mg/dL (7-18); CALCIUM 8.3 mg/dL (8.5-10.1); CREATININE 0.5 mg/dL (0.55-1.3); POTASSIUM 4.2 mmol/L (3.5-5.1); TOT PROT 5.3 g/dl (6.4-8.2)
[2023-06-29] MEDS: ASCORBIC ACID 500 MG/5 ML UNIT DOSE CUP GT SCH (10:52)
[2023-06-29] MEDS: SACUBITRIL/VALSARTAN 97 MG-103 MG TABLET PEG SCH ×2 (10:52→21:20)
[2023-06-29] MEDS: CARVEDILOL 12.5 MG TABLET (FP) GT SCH ×2 (10:52→21:20)
[2023-06-29] MEDS: APIXABAN 5 MG TABLET PO SCH ×2 (10:52→21:20)
[2023-06-29] MEDS: FAMOTIDINE 20 MG/2.5 ML ORAL LIQUID PEG SCH (10:53)
[2023-06-29] MEDS ORDERED: ACETAMINOPHEN 325 MG TABLET (FP) PO PRN (16:14)
[2023-06-29] MEDS ORDERED: IRON SUCROSE INJECTION 100 MG in SODIUM CHLORIDE 95 ML IVPB ONE (19:00)
[2023-06-29] MEDS: ATORVASTATIN CA 80 MG TABLET (FP) GT SCH (21:19)
[2023-06-29] MEDS: MIRTAZAPINE 15 MG TABLET (FP) GT SCH (21:20)
[2023-06-30 08:55] LABS: BASO % 0.3 % (0-2.0); HEMOGLOBIN 8.3 GM/dL (10.7-15.3); LYMPH % 7.5 % (8-40); MCH 26.1 pg (25.7-33.7); MCHC 33.2 g/dl (32.0-36.0); MEAN CELL VOLUME 78.7 fl (80-96); MEAN PLT VOLUME 8.2 fl (7.5-11.1); MONO % 7.9 % (3.8-10.2); NEUT % 81.3 % (42.8-82.8); PLATELET COUNT 316 10^3/uL (134-434); RBC 3.17 M/mm3 (3.60-5.2); RDW 19.5 % (11.6-15.6); WHITE BLOOD COUNT 7.9 K/mm3 (4.0-10.0)
[2023-06-30 09:04] LABS: POTASSIUM 4.6 mmol/L (3.5-5.1)
[2023-06-30 09:10] LABS: ALBUMIN 1.6 g/dl (3.4-5.0); BLOOD UREA NITROGEN 16.4 mg/dL (7-18); CALCIUM 8.7 mg/dL (8.5-10.1); MAGNESIUM 2.1 mg/dL (1.8-2.4)
[2023-06-30 09:13] LABS: CREATININE 0.5 mg/dL (0.55-1.3)
[2023-06-30 09:15] LABS: BILIRUBIN,TOTAL 0.3 mg/dL (0.2-1); TOT PROT 6.2 g/dl (6.4-8.2)
[2023-06-30] MEDS: CARVEDILOL 12.5 MG TABLET (FP) GT SCH ×2 (09:47→22:11)
[2023-06-30] MEDS: SACUBITRIL/VALSARTAN 97 MG-103 MG TABLET PEG SCH ×2 (09:47→22:11)
[2023-06-30] MEDS: APIXABAN 5 MG TABLET PO SCH ×2 (09:47→22:11)
[2023-06-30] MEDS: FAMOTIDINE 20 MG/2.5 ML ORAL LIQUID PEG SCH (09:47)
[2023-06-30] MEDS: ASCORBIC ACID 500 MG/5 ML UNIT DOSE CUP GT SCH (09:47)
[2023-06-30] MEDS ORDERED: ERTAPENEM SODIUM 1 GM in SODIUM CHLORIDE 50 ML IVPB SCH (15:15)
[2023-06-30] MEDS: MIRTAZAPINE 15 MG TABLET (FP) GT SCH (22:11)
[2023-07-01 09:49] LABS: BASO % 0.2 % (0-2.0); EOS % 3.4 % (0-4.5); HEMATOCRIT 22.5 % (32.4-45.2); HEMOGLOBIN 7.6 GM/dL (10.7-15.3); LYMPH % 7.6 % (8-40); MCH 26.4 pg (25.7-33.7); MCHC 33.8 g/dl (32.0-36.0); MEAN CELL VOLUME 78.3 fl (80-96); MEAN PLT VOLUME 7.9 fl (7.5-11.1); MONO % 9.1 % (3.8-10.2); NEUT % 79.7 % (42.8-82.8); PLATELET COUNT 298 10^3/uL (134-434); RBC 2.87 M/mm3 (3.60-5.2); RDW 19.6 % (11.6-15.6)
[2023-07-01] MEDS: ASCORBIC ACID 500 MG/5 ML UNIT DOSE CUP GT SCH ×2 (10:20→10:27)
[2023-07-01] MEDS: APIXABAN 5 MG TABLET PO SCH ×2 (10:20→21:08)
[2023-07-01] MEDS: CARVEDILOL 12.5 MG TABLET (FP) GT SCH ×2 (10:20→21:08)
[2023-07-01] MEDS: SACUBITRIL/VALSARTAN 97 MG-103 MG TABLET PEG SCH ×2 (10:21→21:11)
[2023-07-01] MEDS: FAMOTIDINE 20 MG/2.5 ML ORAL LIQUID PEG SCH (10:21)
[2023-07-01 10:34] LABS: POTASSIUM 4.2 mmol/L (3.5-5.1)
[2023-07-01 10:43] LABS: ALBUMIN 1.5 g/dl (3.4-5.0)
[2023-07-01 10:45] LABS: BLOOD UREA NITROGEN 18.6 mg/dL (7-18); CALCIUM 8.3 mg/dL (8.5-10.1); MAGNESIUM 1.9 mg/dL (1.8-2.4)
[2023-07-01 10:46] LABS: CREATININE 0.5 mg/dL (0.55-1.3)
[2023-07-01 10:48] LABS: BILIRUBIN,TOTAL 0.1 mg/dL (0.2-1)
[2023-07-01 10:51] LABS: TOT PROT 5.5 g/dl (6.4-8.2)
[2023-07-01] MEDS ORDERED: IBUPROFEN 800 MG/8 ML IJ IVPB PRN (14:26)
[2023-07-01] MEDS: MIRTAZAPINE 15 MG TABLET (FP) GT SCH (21:08)
[2023-07-02 09:40] LABS: BASO % 0.4 % (0-2.0); EOS % 5.8 % (0-4.5); HEMATOCRIT 23.7 % (32.4-45.2); HEMOGLOBIN 7.7 GM/dL (10.7-15.3); MCH 25.6 pg (25.7-33.7); MCHC 32.4 g/dl (32.0-36.0); MEAN CELL VOLUME 78.9 fl (80-96); MEAN PLT VOLUME 7.8 fl (7.5-11.1); MONO % 8.5 % (3.8-10.2); NEUT % 77.3 % (42.8-82.8); PLATELET COUNT 330 10^3/uL (134-434); RDW 19.5 % (11.6-15.6); WHITE BLOOD COUNT 6.5 K/mm3 (4.0-10.0)
[2023-07-02] MEDS: ASCORBIC ACID 500 MG/5 ML UNIT DOSE CUP GT SCH (10:23)
[2023-07-02] MEDS: APIXABAN 5 MG TABLET PO SCH ×3 (10:23→22:25)
[2023-07-02] MEDS: CARVEDILOL 12.5 MG TABLET (FP) GT SCH ×2 (10:23→21:33)
[2023-07-02] MEDS: SACUBITRIL/VALSARTAN 97 MG-103 MG TABLET PEG SCH ×2 (10:24→21:33)
[2023-07-02] MEDS: FAMOTIDINE 20 MG/2.5 ML ORAL LIQUID PEG SCH (10:24)
[2023-07-02 10:36] LABS: POTASSIUM 4.5 mmol/L (3.5-5.1)
[2023-07-02 10:46] LABS: ALBUMIN 1.5 g/dl (3.4-5.0); BLOOD UREA NITROGEN 19.6 mg/dL (7-18); CALCIUM 8.8 mg/dL (8.5-10.1); MAGNESIUM 2.1 mg/dL (1.8-2.4)
[2023-07-02 10:47] LABS: CREATININE 0.5 mg/dL (0.55-1.3)
[2023-07-02 10:50] LABS: BILIRUBIN,TOTAL 0.2 mg/dL (0.2-1); TOT PROT 5.8 g/dl (6.4-8.2)
[2023-07-02] MEDS: MIRTAZAPINE 15 MG TABLET (FP) GT SCH (21:33)
[2023-07-03 09:39] LABS: BASO % 0.5 % (0-2.0); EOS % 4.8 % (0-4.5); HEMOGLOBIN 7.9 GM/dL (10.7-15.3); INR 1.49 (0.83-1.09); LYMPH % 9.9 % (8-40); MCH 25.6 pg (25.7-33.7); MCHC 32.8 g/dl (32.0-36.0); MEAN CELL VOLUME 77.9 fl (80-96); MEAN PLT VOLUME 7.5 fl (7.5-11.1); MONO % 10.8 % (3.8-10.2); PLATELET COUNT 319 10^3/uL (134-434); PROTHROMBIN TIME (PATIENT) 17.2 SEC (9.7-13.0); RBC 3.07 M/mm3 (3.60-5.2); RDW 19.3 % (11.6-15.6); WHITE BLOOD COUNT 5.5 K/mm3 (4.0-10.0)
[2023-07-03 10:05] LABS: POTASSIUM 4.2 mmol/L (3.5-5.1)
[2023-07-03 10:08] LABS: BLOOD UREA NITROGEN 16.3 mg/dL (7-18)
[2023-07-03 10:09] LABS: ALBUMIN 1.5 g/dl (3.4-5.0); CALCIUM 8.4 mg/dL (8.5-10.1)
[2023-07-03 10:10] LABS: MAGNESIUM 1.7 mg/dL (1.8-2.4)
[2023-07-03] MEDS: CARVEDILOL 12.5 MG TABLET (FP) GT SCH (10:10)
[2023-07-03] MEDS: ASCORBIC ACID 500 MG/5 ML UNIT DOSE CUP GT SCH (10:10)
[2023-07-03] MEDS: FAMOTIDINE 20 MG/2.5 ML ORAL LIQUID PEG SCH (10:10)
[2023-07-03] MEDS: APIXABAN 5 MG TABLET PO SCH (10:10)
[2023-07-03 10:11] LABS: CREATININE 0.5 mg/dL (0.55-1.3)
[2023-07-03] MEDS: SACUBITRIL/VALSARTAN 97 MG-103 MG TABLET PEG SCH (10:11)
[2023-07-03 10:13] LABS: BILIRUBIN,TOTAL 0.3 mg/dL (0.2-1); TOT PROT 5.7 g/dl (6.4-8.2)
[2023-07-03] MEDS ORDERED: MAGNESIUM OXIDE 400 MG TABLET (FP) GT ONE (12:30)
[2023-07-03 20:02] VITALS: BP 125/77; PULSE 90; RESP 18
[2023-07-03 20:14] VITALS: TEMP 100.5
[2023-07-03] MEDS ORDERED: ACETAMINOPHEN 650 MG/20.3 ML ORAL SOLUTION (CUPS) GT ONE (20:30)
== END 2023-07-03 21:10 | DRG 570 ==
LOC: JER 15:18 → JERBED 18:56 → OBSVTOIN 18:56 → J8W 06-11 07:28
PROVIDERS: ADMIT Internal Medicine; ATTEND Nurse Practitioner Acute Care
PROC: 0JB70ZZ Excision of Back Subcutaneous Tissue and Fascia, Open Approach (ICD-10-PCS; principal; 2023-06-17 12:30)
PROC: 0DH64UZ Insertion of Feeding Device into Stomach, Percutaneous Endoscopic Approach (ICD-10-PCS; 2023-06-17 12:30)
PROC: 30233N1 Transfusion of Nonautologous Red Blood Cells into Peripheral Vein, Percutaneous Approach (ICD-10-PCS; 2023-06-18)
DX: L89.154 Pressure ulcer of sacral region, stage 4 (principal); E43 Unspecified severe protein-calorie malnutrition; R53.2 Functional quadriplegia; I50.32 Chronic diastolic (congestive) heart failure; R64 Cachexia; D62 Acute posthemorrhagic anemia; L08.9 Local infection of the skin and subcutaneous tissue, unspecified; I11.0 Hypertensive heart disease with heart failure; E78.5 Hyperlipidemia, unspecified; F01.50 Vascular dementia, unspecified severity, without behavioral disturbance, psychotic disturbance, mood disturbance, and anxiety; M24.541 Contracture, right hand; R62.7 Adult failure to thrive; I48.91 Unspecified atrial fibrillation; Z22.358 Carrier of other Enterobacterales; D50.9 Iron deficiency anemia, unspecified; R74.01 Elevation of levels of liver transaminase levels; Z68.20 Body mass index [BMI] 20.0-20.9, adult
CPT/HCPCS: 0241U-QW; 36415; 36430; 71045-TC-FY; 72220-TC-FY; 73130-TC-RT-FY; 74018-TC-FY; 76705-TC; 80048; 80053; 81003; 82728; 83540; 83550; 83605; 83735; 84100; 85025; 85027; 85045; 85610; 85651; 85730; 86140; 86850; 86900; 86901; 86922; 87040; 87070; 87086; 87186; 87205; 87635; 93005; 93010; 93306-TC; 94760; 97161-GP; 99285-25; J1756; P9058

== ENCOUNTER 2023-08-04 12:58 | Emergency (ER) | payer OTHER ==
[2023-08-04 13:50] VITALS: BMI 20.3
[2023-08-04 15:45] LABS: BASO % 0.4 % (0-2.0); EOS % 4.4 % (0-4.5); HEMATOCRIT 25.1 % (32.4-45.2); HEMOGLOBIN 8.4 GM/dL (10.7-15.3); LYMPH % 7.6 % (8-40); MCH 26.3 pg (25.7-33.7); MCHC 33.4 g/dl (32.0-36.0); MEAN CELL VOLUME 78.7 fl (80-96); MONO % 8.4 % (3.8-10.2); NEUT % 79.2 % (42.8-82.8); PLATELET COUNT 325 10^3/uL (134-434); RBC 3.18 M/mm3 (3.60-5.2); RDW 19.9 % (11.6-15.6); WHITE BLOOD COUNT 7.4 K/mm3 (4.0-10.0)
[2023-08-04 16:02] LABS: POTASSIUM 3.8 mmol/L (3.5-5.1)
[2023-08-04 16:05] LABS: ALBUMIN 1.5 g/dl (3.4-5.0); BLOOD UREA NITROGEN 23.9 mg/dL (7-18); CALCIUM 8.5 mg/dL (8.5-10.1)
[2023-08-04 16:08] LABS: CREATININE 0.5 mg/dL (0.55-1.3)
[2023-08-04 16:10] LABS: BILIRUBIN,TOTAL 0.5 mg/dL (0.2-1); TOT PROT 6.9 g/dl (6.4-8.2)
[2023-08-04 16:14] LABS: EPI CELLS 18 /uL (0-25.1); HYALINE CASTS 0 /uL (0-3.1); URINE APPEARANCE CLEAR; URINE BACTERIA 9 /uL (0-1359); URINE BILIRUBIN NEGATIVE (NEGATIVE); URINE COLOR YELLOW; URINE GLUCOSE (UA) NEGATIVE (NEGATIVE); URINE KETONE NEGATIVE (NEGATIVE); URINE LEUK ESTERASE NEGATIVE (NEGATIVE); URINE NITRITE NEGATIVE (NEGATIVE); URINE PROTEIN 1+ (NEGATIVE); URINE RBC 40 /uL (0-23.9); URINE WBC 10 /uL (0-25.8)
[2023-08-04 20:56] VITALS: BP 140/76; PULSE 65; RESP 17; TEMP 97.8
== END 2023-08-04 21:55 | disposition home or self-care (01) ==
LOC: JER 12:58
DX: R07.89 Other chest pain (principal); I50.20 Unspecified systolic (congestive) heart failure; R05.9 Cough, unspecified; R53.1 Weakness; R50.9 Fever, unspecified; Z20.822 Contact with and (suspected) exposure to COVID-19
CPT/HCPCS: 0241U-QW; 36415; 71045-TC-FY; 80053; 81003; 85025; 87086; 93005; 93010; 99285-25